=== PATIENT | male | born 1960 | race Caucasian/White ===

== ENCOUNTER → 2020-01-13 07:30 | Outpatient (CLI) | payer OTHER, SELFPAY ==
[2019-12-24 09:35] VITALS: BMI 27.6
--- NOTE | 2020-01-13 07:32 | ECHOD_ITS ---
Reason For Study: MV Repair Procedure This was a 2D Doppler, Color Flow transthoracic echocardiogram. Exam performed in department. Left Ventricle Normal LV size. Left ventricular systolic function is normal. The estimated ejection fraction is 60 %. No regional wall motion abnormalities noted. Right Ventricle Normal RV size. Normal systolic function. Atria Normal left atrium. Normal right atrium. Mitral Valve Normal mitral valve. Trivial mitral valve insufficiency. Status post mitral valve repair with annuloplasty ring. Tricuspid Valve Normal tricuspid valve. Mild tricuspid valve insufficiency. Pulmonary artery systolic pressure is 24 mmHg. Aortic Valve Normal aortic valve. Trisinus/trileaflet aortic valve. Pulmonic Valve Normal pulmonic valve. Great Vessels Normal aortic root. The pulmonary artery is normal size. Normal inferior vena cava. Pericardium/Pleural No pericardial effusion. MMode/2D Measurements & Calculations LVIDd: 4.4 cm IVSd: 1.0 cm Ao root diam: 3.6 cm LVIDs: 2.5 cm LVPWd: 0.98 cm RVDd: 3.5 cm FS: 44.1 % LAV(MOD-bp): 47.6 ml EDV(MOD-sp4): 105.2 ml EDV(MOD-sp2): 103.8 ml LAV(MOD-bp) Indexed: 23.3 ml/m2 ESV(MOD-sp4): 41.7 ml EF(MOD-sp2): 58.4 % LAV(MOD-sp2): 41.1 ml EF(MOD-sp4): 60.4 % LAV(MOD-sp4): 50.0 ml SV(MOD-sp4): 63.5 ml SV(MOD-sp2): 60.5 ml LA A4 area: 17.4 cm2 LA dimension(2D): 4.3 cm RA A4 area: 13.1 cm2 Doppler Measurements & Calculations MV E max tiburcio: 139.8 cm/sec Lat Peak E' Tiburcio: 6.9 cm/sec Med Peak E' Tiburcio: 8.1 cm/sec MV A max tiburcio: 93.9 cm/sec E/E' lat: 20.2 E/E' med: 17.3 MV E/A: 1.5 MV V2 max: 136.6 cm/sec MV P1/2t max tiburcio: 132.1 cm/sec Ao V2 max: 118.1 cm/sec MV max P.5 mmHg MV P1/2t: 92.4 msec Ao max P.6 mmHg MV V2 mean: 70.4 cm/sec MV dec slope: 419.0 cm/sec2 MV mean P.4 mmHg MV V2 VTI: 42.8 cm MVA(P1/2t): 2.4 cm2 LV V1 max: 100.5 cm/sec PA V2 max: 98.0 cm/sec TR max tiburcio: 233.2 cm/sec LV V1 max P.0 mmHg TR max P.8 mmHg Interpretation Summary Status post mitral valve repair with annuloplasty ring. Normal LV size. Left ventricular systolic function is normal. The estimated ejection fraction is 60 %. Trivial mitral valve insufficiency. Pulmonary artery systolic pressure is 24 mmHg. Ordering Physician: Leonides Garcia Referring Physician: Bart Armenta Performed By: Lizeth Wong RDCS
== END ==
PROVIDERS: PCP Family Medicine; Referring Provider Internal Medicine Cardiovascular Disease; Visit Provider Internal Medicine Cardiovascular Disease
DX: Z98.890 Other specified postprocedural states (principal)
CPT/HCPCS: 93306

== ENCOUNTER 2020-10-27 13:40 | Outpatient (RCR) | payer OTHER, SELFPAY ==
[2019-12-24 09:35] VITALS: BMI 27.6
[2020-11-17] MEDS: COVID-19 VACC, MRNA(PFIZER)/PF 30 MCG/0.3 ML SYRINGE IM (07:58)
== END 2021-01-19 23:59 ==
LOC: IMMUN 13:40
PROVIDERS: PCP Family Medicine; Referring Provider Family Medicine; Visit Provider Family Medicine
DX: Z23 Encounter for immunization (principal)
CPT/HCPCS: 0001A; 0002A; 91300

== ENCOUNTER 2021-09-15 10:18 | Outpatient (CLI) | payer OTHER, SELFPAY ==
[2021-09-15 12:31] LABS: Anion Gap 7 (5-15); BUN 24 mg/dL (7-18); BUN/Creat Ratio 22.9 RATIO (10-20); Calcium,Total 8.7 mg/dL (8.5-10.1); Chloride 111 mmol/L (98-107); Cholesterol 159 mg/dL (200); Creatinine, Serum 1.05 mg/dL (0.70-1.30); EST Glomerular Filtration Rate 76 mL/min (>60); Est Glom Filt Rate - Afr Amer 92 mL/min (>60); Glucose 113 mg/dL (74-106); High Density Lipoprotein 43 mg/dL; Potassium 4.4 mmol/L (3.5-5.1); Sodium Level 141 mmol/L (136-145); Triglycerides 55 mg/dL; Very Low Density Lipoprotein 11 mg/dL (5-40)
== END 2021-09-15 23:59 | disposition short-term general hospital (02) ==
LOC: MFPLAB 10:19
PROVIDERS: PCP Nurse Practitioner Family; Referring Provider Nurse Practitioner Family; Visit Provider Nurse Practitioner Family
DX: Z13.1 Encounter for screening for diabetes mellitus (principal); Z13.220 Encounter for screening for lipoid disorders
CPT/HCPCS: 36415; 80048; 80061

== ENCOUNTER 2021-09-29 15:53 | Outpatient (CLI) | payer OTHER, SELFPAY ==
[2021-09-29 19:07] LABS: Hemoglobin A1c 5.7 % (3.8-5.6)
== END 2021-09-29 23:59 | disposition home or self-care (01) ==
LOC: MFPLAB 15:56
PROVIDERS: PCP Nurse Practitioner Family; Referring Provider Nurse Practitioner Family; Visit Provider Nurse Practitioner Family
DX: R73.01 Impaired fasting glucose (principal)
CPT/HCPCS: 36415; 83036

== ENCOUNTER 2021-10-14 15:20 | Outpatient (CLI) | payer OTHER, SELFPAY ==
[2021-10-14 17:54] LABS: Absolute Lymphocyte Count 1.79 X10^3/uL (0.83-4.51); Absolute Neutrophil Count 5.8 X10^3/uL (2.0-7.7); Basophil# 0.03 X10^3/uL; Basophil% 0.4 % (0-1); Eosinophil# 0.13 X10^3/uL; Eosinophils% 1.5 % (0-5); Hemoglobin 17.6 g/dL (13.0-16.5); Lymphocyte # 1.79 X10^3/ul (0.83-4.51); Lymphocyte % 21.3 % (19-41); Mean Corp Hgb Conc 34.5 g/dL (32-36); Mean Corpuscular Hgb 29.8 pg (27.0-32.0); Mean Corpuscular Volume 86.4 fL (80-94); Mean Platelet Vol. 10.6 fl (6.2-12.0); Monocyte# 0.68 X10^3/uL; Monocyte% 8.1 % (0-10); NRBC Flagged by Analyzer 0 % (0-5); Neutrophil # 5.75 X10^3/uL (2.7-7.7); Neutrophil % 68.2 % (47-70); Platelet Count 241 K/mm3 (150-450); RBC Distribution Width CV 12.5 % (11.6-14.6); RBC Distribution Width SD 39.7 fl (35.1-43.9); White Blood Count 8.4 K/mm3 (4.4-11.0)
[2021-10-14 18:18] LABS: T4 Free Direct 1.04 ng/dL (0.76-1.46); Thyroid Stim Hormone (TSH) 0.91 uIU/mL (0.358-3.74)
[2021-10-15 10:21] LABS: Ferritin 223 ng/mL (26-388); Iron 113 ug/dL (65-175); Iron Binding Capacity,Total 293 ug/dL (250-450); PERCENT IRON SATURATION 38.6 % (15.0-55.0)
[2021-10-18 18:08] LABS: Thyroid Stim Immunoglob <0.10 IU/L (0.00-0.55); Transferrin 209 mg/dL (177-329)
[2021-10-18 19:01] LABS: Anti-Thyroglobulin AB < 1.0 IU/mL (0.0-0.9); Thyroglobulin, Serum Qt. 7.6 ng/mL (1.4-29.2); Thyroid Peroxidase AB 9 IU/mL (0-34)
== END 2021-10-14 23:59 | disposition home or self-care (01) ==
LOC: MFPLAB 15:21
PROVIDERS: PCP Family Medicine; Referring Provider Family Medicine; Visit Provider Family Medicine
DX: E01.0 Iodine-deficiency related diffuse (endemic) goiter (principal)
CPT/HCPCS: 36415; 82728; 83540; 83550; 84432; 84439; 84443; 84445; 84466; 85025; 86376; 86800

== ENCOUNTER 2021-10-20 14:37 | Outpatient (CLI) | payer OTHER, SELFPAY ==
--- NOTE | 2021-10-20 14:40 | US_ITS ---
History: Thyromegaly Thyroid ultrasound: Findings: The right thyroid lobe measures 5.9 x 2.1 x 2.6 cm. Left lobe measures 5.8 x 1.9 x 1.9 cm. 4 mm well-defined nodule within the left lobe is noted. This nodule is solid or almost completely solid, hyperechoic or isoechoic, [id number], smoothly marginated and contains no echogenic foci. This nodule is mildly suspicious but no FNA or follow-up is necessary given the small size of this nodule. Thyroid echogenicity is otherwise unremarkable. US/Thyroid IMPRESSION: No significant thyroid abnormality. at 1714 Reported and signed by: Elio Bassett MD Electronically Signed: Elio Bassett MD at 17:13 EST ,
== END 2021-10-20 23:59 | disposition home or self-care (01) ==
LOC: US 14:39
PROVIDERS: PCP Family Medicine; Referring Provider Family Medicine; Visit Provider Family Medicine
DX: E01.0 Iodine-deficiency related diffuse (endemic) goiter (principal)
CPT/HCPCS: 76536

== ENCOUNTER → 2023-09-14 | Outpatient (CLI) | payer OTHER, SELFPAY ==
[2023-09-14 16:30] LABS: Bacteria 0 SEEN /hpf (None Seen); Mucous, Urine 0 SEEN /hpf (<or=2+); Red Blood Cells-Urine 0 SEEN /hpf (0-5); Squamous Epithelial Cells - UA 0 SEEN /hpf (0-5); White Blood Cells 0 SEEN /hpf (0-5)
[2023-09-14 17:47] LABS: Absolute Lymphocyte Count 1.99 X10^3/uL (0.83-4.51); Absolute Neutrophil Count 10.3 X10^3/uL (2.0-7.7); Basophil# 0.02 X10^3/uL; Basophil% 0.1 % (0-1); Eosinophil# 0.09 X10^3/uL; Eosinophils% 0.7 % (0-5); Hematocrit 50.5 % (40-54); Hemoglobin 16.7 g/dL (13.0-16.5); Lymphocyte # 1.99 X10^3/ul (0.83-4.51); Lymphocyte % 14.4 % (19-41); Mean Corp Hgb Conc 33.1 g/dL (32-36); Mean Corpuscular Hgb 29.3 pg (27.0-32.0); Mean Corpuscular Volume 88.8 fL (80-94); Mean Platelet Vol. 10.5 fl (6.2-12.0); Monocyte# 1.32 X10^3/uL; Monocyte% 9.6 % (0-10); NRBC Flagged by Analyzer 0 % (0-5); Neutrophil # 10.34 X10^3/uL (2.7-7.7); Neutrophil % 74.8 % (47-70); Platelet Count 231 K/mm3 (150-450); RBC Distribution Width CV 12.7 % (11.6-14.6); RBC Distribution Width SD 41.3 fl (35.1-43.9); Red Blood Count 5.69 M/mm3 (4.6-6.2); White Blood Count 13.8 K/mm3 (4.4-11.0)
[2023-09-14 17:50] LABS: Color, Urine Yellow (Yellow); Glucose, Dipstick Normal (Normal); Ketone-Dipstick 5 mg/dl (Negative); Leukocyte Esterase-Dipstick Negative /ul (Negative); Nitrite-Dipstick Negative (Negative); Occult Blood-Urine Negative /ul (Negative); Protein-Dipstick 15 mg/dl (Negative); Urine Bilirubin Dipstick Negative (Negative); Urine Clarity Clear (Clear); Urine Urobilinogen Normal (Normal)
[2023-09-14 18:09] LABS: AST(SGOT) 14 U/L (15-37); Alanine Aminotransfer ALT/SGPT 23 U/L (16-61); Albumin, Serum 3.6 g/dL (3.2-5.0); Alkaline Phosphatase 77 U/L (45-117); Anion Gap 1 (5-15); BUN 19 mg/dL (7-18); Calcium,Total 9.4 mg/dL (8.5-10.1); Chloride 107 mmol/L (98-107); Cholesterol 176 mg/dL (200); Creatinine, Serum 1.12 mg/dL (0.70-1.30); EST Glomerular Filtration Rate 70 mL/min (>60); Est Glom Filt Rate - Afr Amer 85 mL/min (>60); Globulin 3.5 g/dL (2.2-4.2); Glucose 120 mg/dL (74-106); High Density Lipoprotein 46 mg/dL; Magnesium 2.4 mg/dL (1.6-2.6); PSA,Total - Annual Screen 0.42 ng/mL (0.00-4.00); Protein, Total 7.1 g/dL (6.4-8.2); Sodium Level 138 mmol/L (136-145); Triglycerides 160 mg/dL; Very Low Density Lipoprotein 32 mg/dL (5-40)
[2023-09-14 18:14] LABS: Hemoglobin A1c 5.7 % (3.8-5.6)
--- OUTSIDE RECORDS SUMMARY | 2023-09-14 19:32 | XMS RPT_ITS | CCD ---
Author Name Unknown Address [address] [place] [address] Organization [facility] Care Team Providers Care Steamfitter Supervisor Name Role Phone Caroline Bentley Unavailable Caroline Bentley Unavailable Medications Completed/Discontinued Medications Medication Drug Class(es) Dates Sig (Normalized) Sig (Original) amoxicillin 500 mg oral tablet (2 sources) Penicillin-class Antibacterial Start: 08-29-2016 take 4 tablets by mouth every hour AMOXICILLIN 500 MG TABS 4 tablets by mouth 1 hr prior to procedure AMOXICILLIN [id number] Leonides Garcia MD aspirin 81 mg oral strip (4 sources) Nonsteroidal Anti-inflammatory Drug Start: 04-16-2014 take 1 tablet by mouth once daily ASPIRIN 81 MG TABS One tablet by mouth daily ASPIRIN [id number] Leonides Garcia MD furosemide 20 mg oral tablet (4 sources) Loop Diuretic Start: 09-26-2014 End: 12-25-2014 take 1 tablet by mouth once daily FUROSEMIDE 20 MG TABS One tablet by mouth daily FUROSEMIDE [id number] Leonides Garcia MD Problems Active Problems Problem Classification Problem Date Documented Da te Episodic/Chronic Cardiac and circulatory congenital anomalies (2 sources) Left atrial abnormality; Translations: [Cardiomegaly] Onset: 04-09-2014 04-09-2014 Chronic Heart valve disorders (8 sources) Mitral valve prolapse; Translations: [Mitral valve disorder] Onset: 04-09-2014 Resolved: 12-24-2015 04-09-2014 Chronic Pulmonary heart disease (2 sources) Pulmonary hypertension; Translations: [Other secondary pulmonary hypertension] Onset: 04-09-2014 04-09-2014 Chronic Past or Other Problems Problem Classification Problem Date Documented Date Episodic/Chronic Conditions associated with dizziness or vertigo (4 sources) Dizziness and giddiness; Translations: [Dizziness and giddiness] Onset: 12-24-2015 Resolved: 12-22-2016 12-22-2016 Episodic Heart valve disorders (2 sources) Systolic murmur; Translations: [Endocarditis, valve unspecified] Onset: 04-09-2014 04-09-2014 Episodic Other circulatory disease (4 sources) History of repair of mitral valve; Translations: [Other specified postprocedural states] Onset: 12-25-2014 12-24-2015 Episodic Other nutritional; endocrine; and metabolic disorders (2 sources) Body mass index (BMI) 26.0-26.9, adult; Translations: [Body mass index (BMI) 26.0-26.9, adult] Onset: 04-16-2014 04-16-2014 Episodic Syncope (2 sources) Syncope and collapse; Translations: [Syncope and collapse] Onset: 09-18-2014 09-18-2014 Episodic Unclassified (2 sources) H/O: Disorder; Translations: [Personal history of other specified conditions] Onset: 09-18-2014 12-22-2016 Episodic Unclassified (2 sources) Open heart valvuloplasty of mitral valve without replacement; Translations: [Open heart valvuloplasty of mitral valve without replacement] Onset: 12-25-2014 12-25-2014 Results Test Name Value Interpretation Reference Range Facil ity Vital Signs Date Time Vital Sign Value Performing Clinician Sherrell olmos 12-22-2016 13:07-0400 BMI (Body Mass Index) 28.09 kg/m2 Caroline Tyson [facility] Work Phone: 12-22-2016 13:07-0400 BP Diastolic 64 mm[Hg] [facility] Work Phone: 12-22-2016 13:07-0400 BP Systolic 110 mm[Hg] Caroline Tyson [facility] Work Phone: 12-22-2016 13:07-0400 Height 177.8 cm Caroline Tyson [facility] Work Phone: 12-22-2016 13:07-0400 Pulse (Heart Rate) 68 /min Caroline Tyson [facility] Work Phone: 12-22-2016 13:07-0400 Respiratory Rate 20 /min Caroline [facility] Work Phone: 12-22-2016 13:07-0400 Weight 88.81 kg Caroline [facility] Work Phone: 12-24-2015 13:04-0400 BSA (Body Surface Area) 2.04 m2 Caroline [facility] Work Phone: 09-25-2014 09:48-0500 Pulse Oximetry 98 % Caroline [facility] Work Phone: Procedures Date Procedure Procedure Detail Performing Clinician Start: 12-24-2015 End: 01-01-2016 Carotid duplex Leonides Garcia MD Start: 12-24-2015 End: 12-24-2015 BRYCE Garcia MD Start: 12-24-2015 End: 12-24-2015 Follow Up Appt 1 year Leonides Garcia MD Start: 12-25-2014 End: 12-25-2014 BRYCE Garcia MD Start: 12-25-2014 End: 12-26-2014 Documentation of current medications Leonides Garcia MD Start: 09-25-2014 End: 09-25-2014 BRYCE Garcia MD Start: 09-25-2014 End: 09-25-2014 Electrocardiogram, complete Leonides Schilling i, MD Start: 09-25-2014 End: 09-25-2014 Follow Up Appt 3 months Mis Fishman Start: 09-18-2014 End: 09-24-2014 48 hour holter monitor Leonides Garcia MD Start: 08-21-2014 End: 08-21-2014 BRYCE Garcia MD Start: 08-21-2014 End: 08-21-2014 Follow Up Appt 2 months Mis Fishman Start: 05-16-2014 End: 05-16-2014 BRYCE Garcia MD Start: 05-16-2014 End: 05-16-2014 Follow Up Appt 3 months Mis Fishman Start: 04-25-2014 End: 05-14-2014 *BMP Leonides Garcia MD Start: 04-25-2014 End: 05-14-2014 CBC W Auto Differential panel - Blood Leonides Garcia MD Start: 04-25-2014 End: 05-03-2014 Chest x-ray Leonides Garcia MD Start: 04-25-2014 End: 05-14-2014 Coagulation factor induced.INR assay in platelet poor plasma Leonides Garcia MD Start: 04-25-2014 End: 05-03-2014 Left Heart Cath Leonides Garcia MD Start: 04-16-2014 End: 04-16-2014 BRYCE Garcia MD Start: 04-16-2014 End: 04-16-2014 Electrocardiogram, complete Leonides Schilling i, MD Start: 04-16-2014 End: 04-16-2014 Follow Up Appt 6 weeks Leonides Garcia MD Start: 04-16-2014 End: 04-16-2014 Stress Echocardiogram (treadmill) Leonides Garcia MD Plan of Treatment Date Care Activity Detail Author Start: 12-21-2017 End: 12-21-2017 Appointment Appointment [facility] Work Phone: Start: 12-22-2016 End: 12-22-2016 CAR REPAIRER APPRENTICE CAR REPAIRER APPRENTICE [facility] Work Phone: Start: 12-22-2016 End: 12-22-2016 Follow Up Appt 1 year Follow Up Appt 1 year [facility] Work Phone: Start: 12-24-2015 End: 12-24-2015 Carotid duplex Carotid duplex [facility] Work Phone: Start: 12-24-2015 End: 12-24-2015 CAR REPAIRER APPRENTICE CAR REPAIRER APPRENTICE [facility] Work Phone: Start: 12-24-2015 End: 12-24-2015 Follow Up Appt 1 year Follow Up Appt 1 year [facility] Work Phone: Start: 12-25-2014 End: 12-25-2014 CAR REPAIRER APPRENTICE CAR REPAIRER APPRENTICE [facility] Work Phone: Start: 12-25-2014 End: 12-25-2014 Follow Up Appt 1 year Follow Up Appt 1 year [facility] Work Phone: Start: 09-25-2014 End: 09-25-2014 Chest x-ray X-Ray, Chest, PA & Lateral [facility] Work Phone: Start: 09-25-2014 End: 09-25-2014 CAR REPAIRER APPRENTICE CAR REPAIRER APPRENTICE [facility] Work Phone: Start: 09-25-2014 End: 09-25-2014 Echocardiography Echocardiogram (complete) [facility] Work Phone: Start: 09-25-2014 End: 09-25-2014 Electrocardiogram, complete EKG (In office) [facility] Work Phone: Start: 09-25-2014 End: 09-25-2014 Follow Up Appt 3 months Follow Up Appt 3 months [facility] Work Phone: Start: 09-18-2014 End: 09-18-2014 48 hour holter monitor 48 hour holter monitor [facility] Work Phone: Start: 08-22-2014 End: 08-22-2014 Thoracic Surgery Referral Thoracic Surgery Referral Lawrence Ahuja, [address] [facility] [address], [place], [address] [facility] Work Phone: Start: 08-21-2014 End: 08-21-2014 CAR REPAIRER APPRENTICE CAR REPAIRER APPRENTICE [facility] Work Phone: Start: 08-21-2014 End: 08-21-2014 Follow Up Appt 2 months Follow Up Appt 2 months [facility] Work Phone: Start: 05-16-2014 End: 05-16-2014 CAR REPAIRER APPRENTICE CAR REPAIRER APPRENTICE [facility] Work Phone: Start: 05-16-2014 End: 05-16-2014 Follow Up Appt 3 months Follow Up Appt 3 months [facility] Work Phone: Start: 04-25-2014 End: 04-25-2014 *BMP *BMP [facility] Work Phone: Start: 04-25-2014 End: 04-25-2014 CBC W Auto Differential panel - Blood *CBC without Diff [facility] Work Phone: Start: 04-25-2014 End: 05-03-2014 Chest x-ray X-Ray, Chest, PA & Lateral [facility] Work Phone: Start: 04-25-2014 End: 04-25-2014 Coagulation factor induced.INR assay in platelet poor plasma *PT/INR [facility] Work Phone: Start: 04-25-2014 End: 04-25-2014 Left Heart Cath Left Heart Cath [facility] Work Phone: Start: 04-16-2014 End: 04-16-2014 CAR REPAIRER APPRENTICE CAR REPAIRER APPRENTICE [facility] Work Phone: Start: 04-16-2014 End: 04-16-2014 Electrocardiogram, complete EKG (In office) [facility] Work Phone: Start: 04-16-2014 End: 04-16-2014 Follow Up Appt 6 weeks Follow Up Appt 6 weeks [facility] Work Phone: Start: 04-16-2014 End: 04-16-2014 Stress Echocardiogram (treadmill) Stress Echocardiogram (treadmill) [facility] Work Phone: Additional Source Comments FOR RECORDS PERTAINING TO PATIENTS WHO ARE OR HAVE BEEN ENROLLED IN A CHEMICAL DEPENDENCY/SUBSTANCEABUSE PROGRAM, SOME INFORMATION MAY BE OMITTED. This clinical summary was aggregated from multiple sources. Caution should be exercised in using it in the provision of clinical care. This summary normalizes information from multiple sources, and as a consequence, information in this document may materially change the coding, format and clinical context of patient data. In addition, data may be omitted in some cases. CLINICAL DECISIONS SHOULD BE BASED ON THE PRIMARY CLINICAL RECORDS. [employer] [facility]. provides no warranty or guarantee of the accuracy or completeness of information in this document.
== END | disposition home or self-care (01) ==
LOC: MFPLAB 16:22
PROVIDERS: PCP Family Medicine; Visit Provider Family Medicine
DX: R73.02 Impaired glucose tolerance (oral) (principal); R03.0 Elevated blood-pressure reading, without diagnosis of hypertension; Z12.5 Encounter for screening for malignant neoplasm of prostate
CPT/HCPCS: 36415; 80053; 80061; 81001; 83036; 83735; 84153; 85025; G0103

== ENCOUNTER 2023-09-22 07:41 | Day surgery (SDC) | payer OTHER, SELFPAY ==
[2023-09-22] VITALS (7 sets, daily range): BP systolic 102–148; BP diastolic 56–89; PULSE 69–82; RESP 16; TEMP 37.1–37.3; O2SAT 94–96; BMI 26.5
--- OUTSIDE RECORDS SUMMARY | 2023-09-22 07:43 | XMS RPT_ITS | CCD ---
Author Name Unknown Address [address] [place] [address] Organization [facility] Care Team Providers Care Wave Soldering Machine Operator Name Role Phone Caroline Bentley Unavailable Caroline Bentley Unavailable Medications Completed/Discontinued Medications Medication Drug Class(es) Dates Sig (Normalized) Sig (Original) amoxicillin 500 mg oral tablet (2 sources) Penicillin-class Antibacterial Start: 08-29-2016 take 4 tablets by mouth every hour AMOXICILLIN 500 MG TABS 4 tablets by mouth 1 hr prior to procedure AMOXICILLIN [id number] Leonides Garcia MD aspirin 81 mg oral strip (4 sources) Nonsteroidal Anti-inflammatory Drug Start: 04-16-2014 take 1 tablet by mouth once daily ASPIRIN 81 MG TABS One tablet by mouth daily ASPIRIN [id number] Leonides Garcia MD furosemide 20 mg oral tablet (4 sources) Loop Diuretic Start: 09-26-2014 End: 12-25-2014 take 1 tablet by mouth once daily FUROSEMIDE 20 MG TABS One tablet by mouth daily FUROSEMIDE [id number] Leonides Garcia MD Problems Active Problems Problem [...] (Body Mass Index) 28.09 kg/m2 Caroline Tyson [facility] Work Phone: 12-22-2016 13:07-0400 BP Diastolic 64 mm[Hg] Caroline [facility] Work Phone: 12-22-2016 13:07-0400 BP Systolic 110 mm[Hg] Caroline Tyson [facility] Work Phone: 12-22-2016 13:07-0400 Height 177.8 cm Caroline Tyson [facility] Work Phone: 12-22-2016 13:07-0400 Pulse (Heart Rate) 68 /min Caroline Tyson [facility] Work Phone: 12-22-2016 13:07-0400 Respiratory Rate [...] Author Start: 12-21-2017 End: 12-21-2017 Appointment Appointment [facility] Work Phone: Start: 12-22-2016 End: 12-22-2016 SENIOR IT SECURITY ANALYST SENIOR IT SECURITY ANALYST [facility] Work Phone: Start: 12-22-2016 End: 12-22-2016 Follow Up Appt 1 year Follow Up Appt 1 year [facility] Work Phone: Start: 12-24-2015 End: 12-24-2015 Carotid duplex Carotid duplex [facility] Work Phone: Start: 12-24-2015 End: 12-24-2015 SENIOR IT SECURITY ANALYST SENIOR IT SECURITY ANALYST [facility] Work Phone: Start: 12-24-2015 End: 12-24-2015 Follow Up Appt 1 year Follow Up Appt 1 year [facility] Work Phone: Start: 12-25-2014 End: 12-25-2014 SENIOR IT SECURITY ANALYST SENIOR IT SECURITY ANALYST [facility] Work Phone: Start: 12-25-2014 End: 12-25-2014 Follow Up Appt 1 year Follow Up Appt 1 year [facility] Work Phone: Start: 09-25-2014 End: 09-25-2014 Chest x-ray X-Ray, Chest, PA & Lateral [facility] Work Phone: Start: 09-25-2014 End: 09-25-2014 SENIOR IT SECURITY ANALYST SENIOR IT SECURITY ANALYST [facility] Work Phone: Start: 09-25-2014 End: 09-25-2014 Echocardiography Echocardiogram (complete) [facility] Work Phone: Start: 09-25-2014 End: 09-25-2014 Electrocardiogram, complete EKG (In office) [facility] Work Phone: Start: 09-25-2014 End: 09-25-2014 Follow Up Appt 3 months Follow Up Appt 3 months [facility] Work Phone: Start: 09-18-2014 End: 09-18-2014 48 hour holter monitor 48 hour holter monitor [facility] Work Phone: Start: 08-22-2014 End: 08-22-2014 Thoracic Surgery Referral Thoracic Surgery Referral Lawrence Ahuja, [address] [facility] [address], [place], [address] [facility] Work Phone: Start: 08-21-2014 End: 08-21-2014 SENIOR IT SECURITY ANALYST SENIOR IT SECURITY ANALYST [facility] Work Phone: Start: 08-21-2014 End: 08-21-2014 Follow Up Appt 2 months Follow Up Appt 2 months [facility] Work Phone: Start: 05-16-2014 End: 05-16-2014 SENIOR IT SECURITY ANALYST SENIOR IT SECURITY ANALYST [facility] Work Phone: Start: 05-16-2014 End: 05-16-2014 Follow Up Appt 3 months Follow Up Appt 3 months [facility] Work Phone: Start: 04-25-2014 End: 04-25-2014 *BMP *BMP [facility] Work Phone: Start: 04-25-2014 End: 04-25-2014 CBC W Auto Differential panel - Blood *CBC without Diff [facility] Work Phone: Start: 04-25-2014 End: 05-03-2014 Chest x-ray X-Ray, Chest, PA & Lateral [facility] Work Phone: Start: 04-25-2014 End: 04-25-2014 Coagulation factor induced.INR assay in platelet poor plasma *PT/INR [facility] Work Phone: Start: 04-25-2014 End: 04-25-2014 Left Heart Cath Left Heart Cath [facility] Work Phone: Start: 04-16-2014 End: 04-16-2014 SENIOR IT SECURITY ANALYST SENIOR IT SECURITY ANALYST [facility] Work Phone: Start: 04-16-2014 End: 04-16-2014 Electrocardiogram, complete EKG (In office) [facility] Work Phone: Start: 04-16-2014 End: 04-16-2014 Follow Up Appt 6 weeks Follow Up Appt 6 weeks [facility] Work Phone: Start: 04-16-2014 End: 04-16-2014 Stress Echocardiogram (treadmill) Stress Echocardiogram (treadmill) [facility] Work Phone: Additional Source Comments [...] BE BASED ON THE PRIMARY CLINICAL RECORDS. [employer] [facility]. provides no warranty or guarantee of the accuracy or completeness of information in this document.
[2023-09-22] MEDS: Lactated Ringers 1,000 ML 15 ML IV (08:20)
--- NOTE | 2023-09-22 08:35 | PCM.HP.STD ---
[facility] - General General Date of Service: 09/22/23 Chief Complaint: Screening for intestinal cancer [facility] Narrative RAHUL GHOSH, is a 62 M who presents via open access today for screening colonoscopy. He has had a very remote 1 when he was a teenager. Only pertinent health history is August 2014 he had a mitral valve repair. He has done well since that time and has no limitations. He denies any bright red blood per rectum or melena. No abdominal pain no weight loss. [facility] Medical History (Updated 09/18/23 @ 14:02 by Karthikeyan Mendez) Cardiology follow-up encounter Elevated blood pressure reading History of echocardiogram Non-smoker Nonrheumatic mitral (valve) insufficiency Nonrheumatic mitral (valve) prolapse Syncope and collapse Wears glasses Home Medications NK 09/18/23 [History Last Taken Unknown] Allergy/AdvReac Type Severity Reaction Status Date / Time No Known Allergies Allergy Verified 09/22/23 08:08 Family History Father Cancer lung cancer Mother Diabetes Surgical History H/O mitral valve repair (08/28/14) History of left heart catheterization (04/30/14) History of tonsillectomy and adenoidectomy Hx of colonoscopy Hx of inguinal hernia repair Social History (Updated 09/15/23 @ 14:14 by Megha Serrano) household members: spouse current occupational status: retired 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, [employer] Smoking Status: Never smoker alcohol intake: never substance use type: does not use ROS Constitutional Constitutional: Reports systems reviewed and no addt'l complaints, except as documented Cardiovascular Cardiovascular: Denies chest pain Respiratory/Chest Respiratory/Chest: Denies shortness of breath at rest Gastrointestinal Gastrointestinal: Denies abdominal pain, change in bowel habits, hematochezia or melena Vital Signs Vital Signs Vital Signs: 09/22/23 08:09 09/22/23 08:09 Temperature 99.1 F Temperature Source Temporal Pulse Rate 82 Respiratory Rate 16 Respiratory Pattern Normal Blood Pressure 148/89 H Blood Pressure Mean 108 Blood Pressure Source Monitor Blood Pressure Position Semi-Fowlers Blood Pressure Location Left Arm Pulse Ox 96 Oxygen Delivery Method Room Air Weight Weight: 185 lb 3.013 oz Body Mass Index (BMI) 26.5 Physical Exam Const alert, oriented x3 and no apparent distress General Appearance: cooperative and comfortable Eyes General Eye: normal appearance of both eyes Neck General: normal visual inspection Chest inspection of chest normal Resp Effort and Inspection: able to speak in complete sentences and symmetric chest movement Auscultation: clear to auscultation bilaterally Cardio regular rate and regular rhythm GI soft to palpation, non-tender and non-distended Extremity no calf tenderness Neuro oriented x3 Psych thought process normal Assessment & Plan Assessment/Plan (1) Encounter for screening for malignant neoplasm of colon: PLAN: The patient presents for screening colonoscopy today with possible biopsy or polypectomy as indicated. He presents via open access. He has had an opportunity to ask and have questions answered. We will proceed as noted. Robles Rubio M.D., F.A.C.S.
--- NOTE | 2023-09-22 09:31 | OP.COLON_ITS ---
Patient Name: Sanjay Gunn Procedure Date: 09/22/2023 9:03 AM Date of : 1960 Age: 62 Procedure: Colonoscopy Indications: Screening for colorectal malignant neoplasm Providers: Robles Rubio MD Referring MD: Bart Cardona Medicines: See the Anesthesia note for documentation of the administered medications Patient Profile: Last Colonoscopy: more than 10 years ago. Complications: No immediate complications. Procedure: Pre-Anesthesia Assessment: - Prior to the procedure, a History and Physical was performed, and patient medications and allergies were reviewed. The patient's tolerance of previous anesthesia was also reviewed. The risks and benefits of the procedure and the sedation options and risks were discussed with the patient. All questions were answered, and informed consent was obtained. Prior Anticoagulants: The patient has taken no anticoagulant or antiplatelet agents. ASA Grade Assessment: II - A patient with mild systemic disease. After reviewing the risks and benefits, the patient was deemed in satisfactory condition to undergo the procedure. After I obtained informed consent, the scope was passed under direct vision. Throughout the procedure, the patient's blood pressure, pulse, and oxygen saturations were monitored continuously. The adult colonoscope was introduced through the anus and advanced to the cecum, identified by appendiceal orifice and ileocecal valve. The colonoscopy was performed without difficulty. The patient tolerated the procedure well. The quality of the bowel preparation was good. The ileocecal valve and the appendiceal orifice were photographed. Scope In: 9:12:54 AM Scope Withdrawal Time 0 hours 8 minutes 42 seconds Scope Out: 9:26:37 AM Total Procedure Duration Time 0 hours 13 minutes 43 seconds Findings: The digital rectal exam findings include non-thrombosed external hemorrhoids, non-thrombosed internal hemorrhoids and internal hemorrhoids (Grade I). Pertinent negatives include normal prostate (size, shape, and consistency). Multiple diverticula were found in the sigmoid colon and descending colon. The exam was otherwise without abnormality. Impression: - Non-thrombosed external hemorrhoids, non-thrombosed internal hemorrhoids and internal hemorrhoids (Grade I) found on digital rectal exam. - Diverticulosis in the sigmoid colon and in the descending colon. - The examination was otherwise normal. - No specimens collected. Recommendation: - Discharge patient to home. - Resume previous diet. - Continue present medications. - Repeat colonoscopy in 10 years for screening purposes. Procedure Code(s): --- Professional --- 97028, Colonoscopy, flexible; diagnostic, including collection of specimen(s) by brushing or washing, when performed (separate procedure) Diagnosis Code(s): --- Professional --- Z12.11, Encounter for screening for malignant neoplasm of colon K64.0, First degree hemorrhoids K64.4, Residual hemorrhoidal skin tags K57.30, Diverticulosis of large intestine without perforation or abscess without bleeding CPT copyright 2021 [employer]. All rights reserved. The codes documented in this report are preliminary and upon shellacker review may be revised to meet current compliance requirements. Robles Rubio MD 09/22/2023 9:31:05 AM This report has been signed electronically. Number of Addenda: 0 Note Initiated On: 09/22/2023 9:03 AM
--- NOTE | 2023-09-22 09:31 | OP.CCLET_ITS ---
09/22/2023 Bart Cardona [address] [place] [address] Re : Colonoscopy procedure for Sanjay Luisgins Dear Dr. Cardona This procedure was performed on Friday, September 22, 2023. My impressions and recommendations are as follows: Impressions : - Non-thrombosed external hemorrhoids, non-thrombosed internal hemorrhoids and internal hemorrhoids (Grade I) found on digital rectal exam. - Diverticulosis in the sigmoid colon and in the descending colon. - The examination was otherwise normal. - No specimens collected. Recommendations : - Discharge patient to home. - Resume previous diet. - Continue present medications. - Repeat colonoscopy in 10 years for screening purposes. My findings are described in the full procedure note, which is enclosed. If I can be of further assistance, please feel free to contact me at Doctor phone number(s): Work: . Sincerely, Robles Rubio MD 09/22/2023 9:31:05 AM This report has been signed electronically.
== END 2023-09-22 10:57 | disposition home or self-care (01) ==
LOC: EN 07:41 → AC 07:42
PROVIDERS: PCP Family Medicine; Referring Provider Family Medicine; Visit Provider Surgery
PROC: 0DJD8ZZ Inspection of Lower Intestinal Tract, Via Natural or Artificial Opening Endoscopic (ICD-10-PCS; CPT 45378; principal; 2023-09-22 08:55)
DX: Z12.11 Encounter for screening for malignant neoplasm of colon (principal); K64.0 First degree hemorrhoids; K57.30 Diverticulosis of large intestine without perforation or abscess without bleeding; K64.4 Residual hemorrhoidal skin tags
CPT/HCPCS: 45378; J7120; J2405

== ENCOUNTER → 2024-03-04 | Outpatient (CLI) | payer MEDICARE, OTHER, SELFPAY ==
--- NOTE | 2024-03-04 14:42 | ECHOD_ITS ---
Reason For Study: MV Repair Procedure This was a 2D Doppler, Color Flow transthoracic echocardiogram. Exam performed in department. Left Ventricle Normal LV size. Left ventricular systolic function is normal. The left ventricular ejection fraction is 60 %. No regional wall motion abnormalities noted. Right Ventricle Normal RV size. Normal systolic function. Atria Normal left atrium. Normal right atrium. Mitral Valve Status post mitral valve repair with annuloplasty ring. Tricuspid Valve Normal tricuspid valve. Mild tricuspid valve insufficiency. Pulmonary artery systolic pressure is 35 mmHg. Aortic Valve Trisinus/trileaflet aortic valve. Pulmonic Valve Normal pulmonic valve. Great Vessels Normal aortic root. The pulmonary artery is normal size. Normal inferior vena cava. Pericardium/Pleural No pericardial effusion. MMode/2D Measurements & Calculations LVIDd: 5.0 cm IVSd: 1.3 cm Ao root diam: 3.7 cm LVIDs: 3.1 cm LVPWd: 0.92 cm LA dimension: 4.7 cm RVDd: 3.5 cm FS: 39.2 % LAV(MOD-bp): 71.9 ml LVAd ap4: 32.7 cm2 SV(MOD-sp4): 57.6 ml LAV(MOD-bp) Indexed: 35.2 ml/m2 LVLd ap4: 8.4 cm LAV(MOD-sp2): 71.2 ml EDV(MOD-sp4): 104.6 ml LAV(MOD-sp4): 74.0 ml EDV(sp4-el): 108.3 ml LVAs ap4: 19.0 cm2 LVLs ap4: 6.7 cm ESV(MOD-sp4): 47.0 ml ESV(sp4-el): 45.2 ml EF(MOD-sp4): 55.1 % EF(sp4-el): 58.2 % SV(sp4-el): 63.0 ml LA A4 area: 21.8 cm2 RA A4 area: 17.6 cm2 TAPSE: 2.3 cm Time Measurements MV dec time: 0.23 sec Doppler Measurements & Calculations MV E max tiburcio: 131.3 cm/sec Lat Peak E' Tiburcio: 8.8 cm/sec Med Peak E' Tiburcio: 9.2 cm/sec MV A max tiburcio: 92.5 cm/sec E/E' lat: 15.0 E/E' med: 14.3 MV E/A: 1.4 MV V2 max: 141.9 cm/sec MV P1/2t max tiburcio: 142.3 cm/sec Ao V2 max: 137.8 cm/sec MV max P.1 mmHg MV P1/2t: 73.7 msec Ao max P.6 mmHg MV V2 mean: 63.3 cm/sec MV dec slope: 565.3 cm/sec2 Ao V2 mean: 90.5 cm/sec MV mean P.1 mmHg Ao mean P.8 mmHg MV V2 VTI: 43.1 cm MVA(P1/2t): 3.0 cm2 Ao V2 VTI: 28.9 cm AV (velocity ratio): 0.87 LV V1 max: 111.5 cm/sec PA V2 max: 106.5 cm/sec TR max tiburcio: 281.0 cm/sec LV V1 max P.0 mmHg PA max PG (full): 1.8 mmHg TR max P.6 mmHg LV V1 mean P.2 mmHg PA V2 mean: 70.7 cm/sec LV V1 mean: 84.6 cm/sec PA mean PG (full): 0.85 mmHg LV V1 VTI: 25.1 cm ECHO/Echo Complete Interpretation Summary Normal LV size. Left ventricular systolic function is normal. The left ventricular ejection fraction is 60 %. Status post mitral valve repair with annuloplasty ring. Pulmonary artery systolic pressure is 35 mmHg. Ordering Physician: Leonides Garcia Referring Physician: Leonides Garcia Performed By: Hammad Goff RCS
== END | disposition home or self-care (01) ==
LOC: CVS 14:40
PROVIDERS: PCP Family Medicine; Referring Provider Internal Medicine Cardiovascular Disease; Visit Provider Internal Medicine Cardiovascular Disease
DX: Z98.890 Other specified postprocedural states (principal)
CPT/HCPCS: 93306

== ENCOUNTER → 2024-04-02 | Outpatient (CLI) | payer MEDICARE, OTHER, SELFPAY ==
[2024-04-02 16:40] LABS: Bacteria 0 SEEN /hpf (None Seen); Mucous, Urine 0 SEEN /hpf (<or=2+); Red Blood Cells-Urine 0 SEEN /hpf (0-5); Squamous Epithelial Cells - UA 0 SEEN /hpf (0-5); White Blood Cells 0 SEEN /hpf (0-5)
[2024-04-02 17:30] LABS: Color, Urine Yellow (Yellow); Glucose, Dipstick Normal (Normal); Ketone-Dipstick Negative (Negative); Leukocyte Esterase-Dipstick Negative /ul (Negative); Nitrite-Dipstick Negative (Negative); Occult Blood-Urine Negative /ul (Negative); Protein-Dipstick Negative (Negative); Specific Gravity, Urine 1.025 (1.002-1.030); Urine Bilirubin Dipstick Negative (Negative); Urine Clarity Clear (Clear); Urine Urobilinogen 1 mg/dl (Normal)
[2024-04-02 17:33] LABS: Absolute Lymphocyte Count 2.23 X10^3/uL (0.83-4.51); Absolute Neutrophil Count 5.5 X10^3/uL (2.0-7.7); Basophil# 0.02 X10^3/uL; Basophil% 0.2 % (0-1); Eosinophil# 0.16 X10^3/uL; Eosinophils% 1.8 % (0-5); Hemoglobin 17.4 g/dL (13.0-16.5); Lymphocyte # 2.23 X10^3/ul (0.83-4.51); Lymphocyte % 25.1 % (19-41); Mean Corp Hgb Conc 34.1 g/dL (32-36); Mean Corpuscular Hgb 29.6 pg (27.0-32.0); Mean Corpuscular Volume 86.9 fL (80-94); Mean Platelet Vol. 10.1 fl (6.2-12.0); Monocyte# 0.92 X10^3/uL; Monocyte% 10.4 % (0-10); NRBC Flagged by Analyzer 0 % (0-5); Platelet Count 241 K/mm3 (150-450); RBC Distribution Width CV 12.3 % (11.6-14.6); RBC Distribution Width SD 38.9 fl (35.1-43.9); Red Blood Count 5.87 M/mm3 (4.6-6.2); White Blood Count 8.9 K/mm3 (4.4-11.0)
[2024-04-02 18:16] LABS: ALB/GLOB Ratio 1.1 RATIO (0.9-2.4); AST(SGOT) 18 U/L (15-37); Alanine Aminotransfer ALT/SGPT 20 U/L (16-61); Albumin, Serum 3.7 g/dL (3.2-5.0); Alkaline Phosphatase 83 U/L (45-117); Anion Gap 5 (5-15); BUN 18 mg/dL (7-18); BUN/Creat Ratio 17.1 RATIO (10-20); Calcium,Total 9.5 mg/dL (8.5-10.1); Chloride 110 mmol/L (98-107); Cholesterol 179 mg/dL (200); Creatinine, Serum 1.05 mg/dL (0.70-1.30); EST Glomerular Filtration Rate 75 mL/min (>60); Est Glom Filt Rate - Afr Amer 91 mL/min (>60); Globulin 3.3 g/dL (2.2-4.2); Glucose 105 mg/dL (74-106); High Density Lipoprotein 46 mg/dL; Magnesium 2.3 mg/dL (1.6-2.6); Sodium Level 139 mmol/L (136-145); Triglycerides 141 mg/dL; Very Low Density Lipoprotein 28 mg/dL (5-40)
[2024-04-02 19:54] LABS: Hemoglobin A1c 5.6 % (3.8-5.6)
== END | disposition home or self-care (01) ==
LOC: MFPLAB 16:38
PROVIDERS: PCP Family Medicine; Visit Provider Family Medicine
DX: I10 Essential (primary) hypertension (principal); R73.02 Impaired glucose tolerance (oral)
CPT/HCPCS: 36415; 80053; 80061; 81001; 83036; 83735; 85025

== ENCOUNTER → 2024-04-10 | Outpatient (CLI) | payer MEDICARE, OTHER, SELFPAY ==
--- NOTE | 2024-04-10 14:15 | US_ITS ---
STUDY: THYROID ULTRASOUND REASON FOR EXAM: Male, 63 years old. nodule TECHNIQUE: Ultrasound evaluation of the thyroid was performed with real-time and static st-scale imaging. COMPARISON: 10/20/2021 FINDINGS: RIGHT LOBE: The right lobe of the thyroid gland measures 5.8 x 2.0 x 1.5 cm. There is a homogeneous echotexture. There are no demonstrated solid, cystic or complex lesions. LEFT LOBE: The left lobe of the thyroid gland measures 5.6 x 2.0 x 2.1 cm. There is a homogeneous echotexture. No change in a 4 mm adenoma in the anterior left lobe. ISTHMUS: The isthmus measures 3 mm thick. . The regional lymph nodes are normal. US/Thyroid IMPRESSION: No change in tiny adenoma left lobe. Electronically Signed: Renan White MD at 13:26 EDT ,
== END | disposition home or self-care (01) ==
LOC: US 14:14
PROVIDERS: PCP Family Medicine; Referring Provider Family Medicine; Visit Provider Family Medicine
DX: E04.1 Nontoxic single thyroid nodule (principal)
CPT/HCPCS: 76536

== ENCOUNTER → 2024-09-18 | Outpatient (CLI) | payer MEDICARE, OTHER, SELFPAY ==
[2024-09-18 18:33] LABS: PSA,Total - Annual Screen 0.53 ng/mL (0.00-4.00)
== END | disposition home or self-care (01) ==
LOC: MTLAB 15:05
PROVIDERS: PCP Family Medicine; Referring Provider Family Medicine; Visit Provider Family Medicine
DX: Z12.5 Encounter for screening for malignant neoplasm of prostate (principal)
CPT/HCPCS: 36415; 84153; G0103

== ENCOUNTER → 2024-10-15 | Outpatient (CLI) | payer MEDICARE, OTHER, SELFPAY ==
--- NOTE | 2024-10-15 12:47 | ECHOD_ITS ---
Reason For Study Reason For Study: RBBB Procedure This was a 2D Doppler, Color Flow transthoracic echocardiogram. Exam performed in department. Left Ventricle Normal LV size. Mild concentric left ventricular hypertrophy. The left ventricular ejection fraction is 65 %. Stage 1 diastolic dysfunction. Right Ventricle Normal right ventricle. Atria The left atrium is mildly enlarged. Normal right atrium. Mitral Valve Mitral annuloplasty ring noted. Trivial mitral valve regurgitation. Tricuspid Valve Trivial tricuspid valve insufficiency. Right ventricular systolic pressure estimated to be 43 mmHg. Aortic Valve Trisinus/trileaflet aortic valve. Pulmonic Valve The pulmonic valve is not well visualized. Great Vessels Normal sized aortic root. Pericardium/Pleural No pericardial effusion. MMode/2D Measurements & Calculations LVIDd: 4.7 cm IVSd: 1.3 cm asc Aorta Diam: 3.6 cm LVIDs: 2.8 cm LVPWd: 1.2 cm RVDd: 4.2 cm FS: 40.6 % LAV(MOD-bp): 45.0 ml LVAd ap4: 26.5 cm2 SV(MOD-sp4): 52.3 ml LAV(MOD-bp) Indexed: 22.0 ml/m2 LVLd ap4: 7.9 cm SI(MOD-sp4): 25.6 ml/m2 LAV(MOD-sp2): 37.5 ml EDV(MOD-sp4): 74.3 ml LAV(MOD-sp4): 52.4 ml EDV(sp4-el): 75.2 ml LVAs ap4: 12.8 cm2 LVLs ap4: 6.2 cm ESV(MOD-sp4): 22.1 ml ESV(sp4-el): 22.3 ml EF(MOD-sp4): 70.3 % EF(sp4-el): 70.3 % SV(sp4-el): 52.9 ml LA A4 area: 18.1 cm2 LA dimension(2D): 4.6 cm RA A4 area: 12.5 cm2 TAPSE: 2.5 cm Time Measurements MV dec time: 0.29 sec Doppler Measurements & Calculations MV E max tiburcio: 107.2 cm/sec Lat Peak E' Tiburcio: 8.9 cm/sec Med Peak E' Tiburcio: 7.2 cm/sec MV A max tiburcio: 122.2 cm/sec E/E' lat: 12.1 E/E' med: 15.0 MV E/A: 0.88 MV V2 max: 127.6 cm/sec Ao V2 max: 174.5 cm/sec MV max P.5 mmHg MV dec slope: 364.6 cm/sec2 Ao max P.2 mmHg MV V2 mean: 80.6 cm/sec Ao V2 mean: 122.8 cm/sec MV mean P.9 mmHg Ao mean P.5 mmHg MV V2 VTI: 40.0 cm Ao V2 VTI: 29.4 cm LV V1 max: 128.4 cm/sec PA V2 max: 105.0 cm/sec PI end-d tiburcio: 136.0 cm/sec LV V1 max P.6 mmHg TR max tiburcio: 309.0 cm/sec TR max P.2 mmHg ECHO/Echo Complete Interpretation Summary Mild concentric left ventricular hypertrophy. The left ventricular ejection fraction is 65 %. Stage 1 diastolic dysfunction. The left atrium is mildly enlarged. Mitral annuloplasty ring noted. Trivial mitral valve regurgitation. Right ventricular systolic pressure estimated to be 43 mmHg. Ordering Physician: Bart Cardona Referring Physician: Bart Cardona Performed By: Lina Ash RDCS, RVT
== END | disposition home or self-care (01) ==
LOC: CVS 12:43
PROVIDERS: PCP Family Medicine; Referring Provider Family Medicine; Visit Provider Family Medicine
DX: I45.10 Unspecified right bundle-branch block (principal); I34.0 Nonrheumatic mitral (valve) insufficiency
CPT/HCPCS: 93306

== ENCOUNTER → 2025-04-01 | Outpatient (CLI) | payer MEDICARE, OTHER, SELFPAY ==
[2025-04-01 15:14] LABS: Mucous, Urine 0 SEEN /hpf (<or=2+); Squamous Epithelial Cells - UA 0 SEEN /hpf (0-5)
[2025-04-01 18:18] LABS: Hematocrit 49.3 % (40-54); Hemoglobin 17.6 g/dL (13.0-16.5); Immature Granulocytes Count 0.040 X10^3/uL (0.0-0.0); Mean Corp Hgb Conc 35.7 g/dL (32-36); Mean Corpuscular Volume 87.7 fL (80-94); Mean Platelet Vol. 10.6 fl (6.2-12.0); NRBC Flagged by Analyzer 0 % (0-5); Platelet Count 236 K/mm3 (150-450); RBC Distribution Width CV 12.3 % (11.6-14.6); RBC Distribution Width SD 39.7 fl (35.1-43.9); Red Blood Count 5.62 M/mm3 (4.6-6.2); White Blood Count 8.7 K/mm3 (4.4-11.0)
[2025-04-01 18:49] LABS: Color, Urine Yellow (Yellow); Glucose, Dipstick Normal (Normal); Ketone-Dipstick Negative (Negative); Leukocyte Esterase-Dipstick Negative /ul (Negative); Nitrite-Dipstick Negative (Negative); Occult Blood-Urine Negative /ul (Negative); Protein-Dipstick 15 mg/dl (Negative); Specific Gravity, Urine 1.025 (1.002-1.030); Urine Bilirubin Dipstick Negative (Negative)
[2025-04-01 18:59] LABS: Cholesterol 176 mg/dL (<=200); Low Density Lipoprotein Calc. 98 mg/dL; Magnesium 2.2 mg/dL (1.5-2.2); Triglycerides 176 mg/dL; Very Low Density Lipoprotein 35 mg/dL (5-40); cholesterol:hdl ratio screen 4.10
[2025-04-01 19:04] LABS: AST(SGOT) 23 U/L (<=37); Alanine Aminotransfer ALT/SGPT 17 U/L (<=46); Albumin, Serum 4.0 g/dL (3.4-4.8); Alkaline Phosphatase 72 U/L (40-129); Anion Gap 13 (5-15); BUN 22 mg/dL (4-19); BUN/Creat Ratio 18.2 RATIO (10-20); Calcium,Total 9.6 mg/dL (7.6-11.0); Carbon Dioxide 22.5 mmol/L (21.0-32.0); Chloride 104 mmol/L (98-108); Globulin 2.8 g/dL (2.2-4.2); Glucose 101 mg/dL (70-99); Potassium 3.9 mmol/L (3.3-5.1)
[2025-04-01 19:35] LABS: Red Blood Cells-Urine 0-5 SEEN /hpf (0-5)
--- OUTSIDE RECORDS SUMMARY | 2025-04-01 22:24 | XMS RPT_ITS | CCD ---
Author Organization [facility] Care Team Providers Care Nurse Assessor Name Role Phone Caroline Bentley Unavailable Caroline Bentley Unavailable Dr. Bart Cardona Primary Care Provider Megha Serrano Attending Provider Unavailable Dr. Bart Cardona Referring Provider Dr. Robles Rubio Attending Provider [phone] Dr. Robles Rubio Other Provider Radha, [place] Attending Unavailable Radha, Leonides Referring Unavailable Bart Cardona Primary Care Unavailable Bart Cardona Attending Unavailable Bart Cardona Primary Care Unavailable Bart Cardona Primary Care Unavailable Ricki Soria Attending Unavailable Radha, Leonides Attending Unavailable Bart Cardona Primary Care Unavailable Rosy Allison NP Attending Unavailable Bart Cardona Primary Care Unavailable Radha, [place] Attending Unavailable Bart Cardona Referring Unavailable Bart Cardona Primary Care Unavailable Bart Cardona Attending Unavailable Bart Cardona Referring Unavailable Bart Cardona Primary Care Unavailable Bart Cardona Referring Unavailable Bart Cardona Primary Care Unavailable Bart Cardona Attending Unavailable Bart Cardona Referring Unavailable Bart Cardona Primary Care Unavailable Bart Cardona Attending Unavailable Dr. Bart Cardona MD Primary Care Provider Dr. Bart Cardona MD Attending Provider Dr. Bart Cardona MD Referring Provider Dr. Ricki Soria MD Attending Provider Medications Current Medications Medication Drug Class(es) Dates Sig (Normalized) Sig (Original) [place] (Nk) (1 source) Start: 09-18-2023 [place] (Nk) Bruce ctive September 18, 2023 12:00am Completed/Discontinued Medications Medication Drug Class(es) Dates Sig (Normalized) Sig (Original) amoxicillin 500 mg oral capsule (12 sources) Penicillin-class Antibacterial Start: 03-21-2022 End: 09-18-2023 take 4 capsules by mouth every hour Amoxicillin 500 mg capsule Discontinued 500 mg PO .COMPLEX 4 September 15, 2023 4:25pm September 18, 2023 2:32pm 500 mg orally 4 capsules 1 hour prior to dental appointment; Start: 12-20-2017 End: 12-30-2021 take 4 tablets by mouth every hour Amoxicillin 500 mg tablet Discontinued 2000 mg PO .COMPLEX December 21, 2017 1:37pm December 30, 2021 2:16pm 2,000 mg PO one hour prior to dental procedure Start: 12-20-2017 End: 12-30-2021 take 2000 mg by mouth every hour Amoxicillin Discontinued 2000 MG PO .COMPLEX December 21, 2017 12:37pm December 30, 2021 1:16pm 2,000 mg PO one hour prior to dental procedure Start: 08-29-2016 take 4 tablets by mo [facility] every hour AMOXICILLIN 500 MG TABS 4 tablets by mouth 1 hr prior to procedure AMOXICILLIN [id number] Leonides Garcia MD aspirin 81 mg chewable tablet (6 sources) Nonsteroidal Anti-inflammatory Drug Start: 04-29-2014 End: 12-20-2019 take 1 tablet by mouth once daily Aspirin 81 MG tablet,chewable Discontinued 81 mg PO DAILY@08April 29, 2014 12:00am December 20, 2019 7:52pm Start: 04-16-2014 [facility] ASPIRIN 81 MG TABS One tablet by mouth daily ASPIRIN [id number] Leonides Garcia MD furosemide 20 mg oral tablet (4 sources) Loop Diuretic Start: 09-26-2014 End: 12-25-2014 take 1 tablet by mouth once daily FUROSEMIDE 20 MG TABS One tablet by mouth daily FUROSEMIDE [id number] Leonides Garcia MD hydroCHLOROthiazide 12.5 mg oral tablet (1 source) Thiazide Diuretic Start: 11-30-2023 End: 02-01-2024 take 1 tablet by mouth once daily Hydrochlorothiazide 12.5 mg tablet Discontinued 12.5 mg PO DAILY November 30, 2023 12:00am February 01, 2024 11:17am Problems Active Problems Problem Classification Problem Date Documented Da te Episodic/Chronic Cardiac and circulatory congenital anomalies (2 sources) Left atrial abnormality; Translations: [Cardiomegaly] Onset: 04-09-2014 04-09-2014 Chronic Conduction disorders (1 source) Unspecified right bundle-branch block; Translations: [Unspecified right bundle-branch block] Onset: 10-25-2024 Chronic Essential hypertension (1 source) Essential (primary) hypertension; Translations: [Essential (primary) hypertension] Onset: 04-18-2024 Chronic Heart valve disorders (12 sources) Mitral valve prolapse; Translations: [Mitral valve disorder] Onset: 04-09-2014 Resolved: 12-24-2015 04-09-2014 Chronic Other and ill-defined heart disease (2 sources) Left atrial enlargement; Translations: [Cardiomegaly] 12-21-2020 Chronic Other screening for suspected conditions (not mental disorders or infectious disease) (4 sources) Patient encounter status; Translations: [Encounter for screening for malignant neoplasm of colon] Onset: 10-04-2024 09-15-2023 Episodic Pulmonary heart disease (2 sources) Pulmonary hypertension; Translations: [Other secondary pulmonary hypertension] Onset: 04-09-2014 04-09-2014 Chronic Thyroid disorders (1 source) Nontoxic single thyroid nodule; Translations: [Nontoxic single thyroid nodule] Onset: 04-18-2024 Chronic Past or Other Problems Problem Classification Problem Date Documented Date Episodic/Chronic Conditions associated with dizziness or vertigo (4 sources) Dizziness and giddiness; Translations: [Dizziness and giddiness] Onset: 12-24-2015 Resolved: 12-22-2016 12-22-2016 Episodic Heart valve disorders (2 sources) Systolic murmur; Translations: [Endocarditis, valve unspecified] Onset: 04-09-2014 04-09-2014 Episodic Other circulatory disease (6 sources) History of repair of mitral valve; Translations: [Other specified postprocedural states] Onset: 08-28-2014 12-24-2015 Episodic Comment on above: # 32 annuloplasty ba nd 08/28/2014 Other nutritional; endocrine; and metabolic disorders (2 sources) Body mass index (BMI) 26.0-26.9, adult; Translations: [Body mass index (BMI) 26.0-26.9, adult] Onset: 04-16-2014 04-16-2014 Episodic Residual codes; unclassified (1 source) Other specified postprocedural states; Translations: [Other specified postprocedural states] Onset: 03-20-2024 Episodic Syncope (2 sources) Syncope and collapse; Translations: [Syncope and collapse] Onset: 09-18-2014 09-18-2014 Episodic Unclassified (2 sources) H/O: Disorder; Translations: [Personal history of other specified conditions] Onset: 09-18-2014 12-22-2016 Episodic Unclassified (2 sources) 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 Bart Cardona MD Status: [facility] Ordering Dr: Bart Cardona MD Date: 10/15/24 Location: [facility] Sex: M C Admitted: Reason For Study Reason For Study: RBBB Procedure This was a 2D Doppler, Color Flow transthoracic echocardiogram. Exam performed in department. Left Ventricle Normal LV size. Mild concentric left ventricular hypertrophy. The left ventricular ejection fraction is 65 %. Stage 1 diastolic dysfunction. Right Ventricle Normal right ventricle. Atria The left atrium is mildly enlarged. Normal right atrium. Mitral Valve Mitral annuloplasty ring noted. Trivial mitral valve regurgitation. Tricuspid Valve Trivial tricuspid valve insufficiency. Right ventricular systolic pressure estimated to be 43 mmHg. Aortic Valve Trisinus/trileaflet aortic valve. Pulmonic Valve The pulmonic valve is not well visualized. Great Vessels Normal sized aortic root. Pericardium/Pleural No pericardial effusion. MMode/2D Measurements Calculations LVIDd: 4.7 cm IVSd: 1.3 cm asc Aorta Diam: 3.6 cm LVIDs: 2.8 cm LVPWd: 1.2 cm RVDd: 4.2 cm FS: 40.6 % __ LAV(MOD-bp): 45.0 ml LVAd ap4: 26.5 cm2 SV(MOD-sp4): 52.3 ml LAV(MOD-bp) Indexed: 22.0 ml/m2 LVLd ap4: 7.9 cm SI(MOD-sp4): 25.6 ml/m2 LAV(MOD-sp2): 37.5 ml EDV(MOD-sp4): 74.3 ml LAV(MOD-sp4): 52.4 ml EDV(sp4-el): 75.2 ml LVAs ap4: 12.8 cm2 LVLs ap4: 6.2 cm ESV(MOD-sp4): 22.1 ml ESV(sp4-el): 22.3 ml EF(MOD-sp4): 70.3 % EF(sp4-el): 70.3 % __ SV(sp4-el): 52.9 ml LA A4 area: 18.1 cm2 LA dimension(2D): 4.6 cm __ RA A4 area: 12.5 cm2 TAPSE: 2.5 cm Time Measurements MV dec time: 0.29 sec Doppler Measurements Calculations MV E max tiburcio: 107.2 cm/sec Lat Peak E' Tiburcio: 8.9 cm/sec Med Peak E' Tiburcio: 7.2 cm/sec MV A max tiburcio: 122.2 cm/sec E/E' lat: 12.1 E/E' med: 15.0 MV E/A: 0.88 __ MV V2 max: 127.6 cm/sec Ao V2 max: 174.5 cm/sec MV max P.5 mmHg MV dec slope: 364.6 cm/sec2 Ao max P.2 mmHg MV V2 mean: 80.6 cm/sec Ao V2 mean: 122.8 cm/sec MV mean P.9 mmHg Ao mean P.5 mmHg MV V2 VTI: 40.0 cm Ao V2 VTI: 29.4 cm __ LV V1 max: 128.4 cm/sec PA V2 max: 105.0 cm/sec PI end-d tiburcio: 136.0 cm/sec LV V1 max P.6 mmHg __ TR max tiburcio: 309.0 cm/sec TR max P.2 mmHg ECHO/Echo Complete Interpretation Summary Mild concentric left ventricular hypertrophy. The left ventricular ejection fraction is 65 %. Stage 1 diastolic dysfunction. The left atrium is mildly enlarged. Mitral annuloplasty ring noted. Trivial mitral valve regurgitation. Right ventricular systolic pressure estimated to be 43 mmHg. __ Ordering Physician: Bart Cardona Referring Physician: Bart Cardona Performed By: Lina Ash, SWATHI, RVT 10/15/24 1355 Date Ricki Soria MD CC: Dr. Bart Cardona MD Date Dictated: 10/15/24 1250 Date Transcribed: 10/15/24 135 Trans Router: Signed Normal [facility] Echocardiogram study reportO rdered By: Ricki Soria on 10-15-2024 Study report [facility] [address] [place] [address] Echo Complete 10/15/24 1250 MR#: [id number] Acct: [id number] Name: RAHUL GHOSH #:[id number] : 1960 63 From: Ricki Soria MD Attending Dr: Dr. Bart Cardona MD Status: REG CLI Ordering Dr: Bart Cardona MD Date: 10/15/24 Location: [facility] Sex: M C Admitted: Reason For Study Reason For Study: RBBB Procedure This was a 2D Doppler, Color Flow transthoracic echocardiogram. Exam performed in department. Left Ventricle Normal LV size. Mild concentric left ventricular hypertrophy. The left ventricular ejection fraction is 65 %. Stage 1 diastolic dysfunction. Right Ventricle Normal right ventricle. Atria The left atrium is mildly enlarged. Normal right atrium. Mitral Valve Mitral annuloplasty ring noted. Trivial mitral valve regurgitation. Tricuspid Valve Trivial tricuspid valve insufficiency. Right ventricular systolic pressure estimated to be 43 mmHg. Aortic Valve Trisinus/trileaflet aortic valve. Pulmonic Valve The pulmonic valve is not well visualized. Great Vessels Normal sized aortic root. Pericardium/Pleural No pericardial effusion. MMode/2D Measurements & Calculations LVIDd: 4.7 cm IVSd: 1.3 cm asc Aorta Diam: 3.6 cm LVIDs: 2.8 cm LVPWd: 1.2 cm RVDd: 4.2 cm FS: 40.6 % LAV(MOD-bp): 45.0 ml LVAd ap4: 26.5 cm2 SV(MOD-sp4): 52.3 ml LAV(MOD-bp) Indexed: 22.0 ml/m2 LVLd ap4: 7.9 cm SI(MOD-sp4): 25.6 ml/m2 LAV(MOD-sp2): 37.5 ml EDV(MOD-sp4): 74.3 ml LAV(MOD-sp4): 52.4 ml EDV(sp4-el): 75.2 ml LVAs ap4: 12.8 cm2 LVLs ap4: 6.2 cm ESV(MOD-sp4): 22.1 ml ESV(sp4-el): 22.3 ml EF(MOD-sp4): 70.3 % EF(sp4-el): 70.3 % ____ SV(sp4-el): 52.9 ml LA A4 area: 18.1 cm2 LA dimension(2D): 4.6 cm ____ RA A4 area: 12.5 cm2 TAPSE: 2.5 cm Time Measurements MV dec time: 0.29 sec Doppler Measurements & Calculations MV E max tiburcio: 107.2 cm/sec Lat Peak E' Tiburcio: 8.9 cm/sec Med Peak E' Tiburcio: 7.2 cm/sec MV A max tiburcio: 122.2 cm/sec E/E' lat: 12.1 E/E' med: 15.0 MV E/A: 0.88 __ MV V2 max: 127.6 cm/sec Ao V2 max: 174.5 cm/sec MV max P.5 mmHg MV dec slope: 364.6 cm/sec2 Ao max P.2 mmHg MV V2 mean: 80.6 cm/sec Ao V2 mean: 122.8 cm/sec MV mean P.9 mmHg Ao mean P.5 mmHg MV V2 VTI: 40.0 cm Ao V2 VTI: 29.4 cm __ LV V1 max: 128.4 cm/sec PA V2 max: 105.0 cm/sec PI end-d tiburcio: 136.0 cm/sec LV V1 max P.6 mmHg ____ TR max tiburcio: 309.0 cm/sec TR max P.2 mmHg ECHO/Echo Complete Interpretation Summary Mild concentric left ventricular hypertrophy. The left ventricular ejection fraction is 65 %. Stage 1 diastolic dysfunction. The left atrium is mildly enlarged. Mitral annuloplasty ring noted. Trivial mitral valve regurgitation. Right ventricular systolic pressure estimated to be 43 mmHg. __ Ordering Physician: Bart Cardona Referring Physician: Bart Cardona Performed By: Lina Ash, RDCS, RVT 10/15/24 1355 Date _ Ricki Soria MD CC: Dr. Bart Cardona MD ~ Date Dictated: 10/15/24 1250 Date Transcribed: 10/15/24 1355 Trans Router: Signed [facility] Work Phone: [phone] PSA,Total - Annual Screenon 09-18-2024 PSA,TOT SCREEN 0.53 ng/mL Normal 0.00-4.00 [facility] Comment on above: Result Comment: This test was performed using the TPSA assay method for the [employer] chemistry system. Values obtained with different assay methods cannot be used interchangably. When changing PSA assays in the course of monitoring a patient, additional sequential testing should be carried out to confirm baseline values. Performed By: #### L 501.9910 ####[facility] [address] [facility]. [place], [place], [id number] Screening prostate specific antigen (PSA) measurementOrdered By: Bart Cardona on 09-18-2024 Prostate Specific Antigen Screen 0.53 ng/mL 0.00-4.00 [facility] Comment on above: This test was perfor med using the TPSA assay method for the[employer] chemistry system. Values obtained with differentassay methods cannot be used interchangably.When changing PSA assays in the course of monitoring apatient, additional sequential testing should be carriedout to confirm baseline values. Thyroidon 04-10-2024 Thyroid [facility] Imaging Services [address] [place] [address] Thyroid MR#: [id number] Acct: [id number] Name: RAHUL GHOSH Rep #: [id number] : 1960 M 63 From: Renan White MD PCP: Dr. Bart Cardona MD Status: REG CLI Study: Thyroid Date of Exam: 04/10/24 Exam# [id number] Ordering Dr: Bart Cardona MD -[id number] STUDY: THYROID ULTRASOUND REASON FOR EXAM: Male, 63 years old. nodule TECHNIQUE: Ultrasound evaluation of the thyroid was performed with real-time and static st-scale imaging. COMPARISON: 10/20/2021 FINDINGS: RIGHT LOBE: The right lobe of the thyroid gland measures 5.8 x 2.0 x 1.5 cm. There is a homogeneous echotexture. There are no demonstrated solid, cystic or complex lesions. LEFT LOBE: The left lobe of the thyroid gland measures 5.6 x 2.0 x 2.1 cm. There is a homogeneous echotexture. No change in a 4 mm adenoma in the anterior left lobe. ISTHMUS: The isthmus measures 3 mm thick. . The regional lymph nodes are normal. US/Thyroid IMPRESSION: No change in tiny adenoma left lobe. Electronically Signed: Renan White MD at 13:26 EDT , CC: Dr. Bart Cardona MD Trans Router: Signed Normal [facility] CBC W/Diff, Automatedon 03-15 Absolute Lymph 2.23 X10 3/uL Normal 0.83-4.51 [facility] Comment on above: Order Comment: Order Date: 04/02/24 Order Info: [id number] - CBCD Performed By: #### L 500.4050, L100.0100, L500.4100, L501.5200, L501.9985 #### [facility] [place], [address] Absolute Neut 5.5 X10 3/uL Normal 2.0-7.7 [facility] Comment on above: Order Comment: Order Date: 04/02/24 Order Info: [id number] - CBCD Performed By: #### L 500.4050, L100.0100, L500.4100, L501.5200, L501.9985 #### [facility] [address] [place], [address] Basophils/100 WBC (Bld) 0.2 % Normal 0-1 [facility] Comment on above: Order Comment: Order Date: 04/02/24 Order Info: [id number]- - CBCD Performed By: #### L 500.4050, L100.0100, L500.4100, L501.5200, L501.9985 #### [facility] [address] [place], [address] Eosinophils/100 WBC (Bld) 1.8 % Normal 0-5 [facility] Comment on above: Order Comment: Order Date: 04/02/24 Order Info: [id number]- - CBCD Performed By: #### L 500.4050, L100.0100, L500.4100, L501.5200, L501.9985 #### [facility] [address] [place], [address] Erythrocyte distribution width (RBC) [Ratio] 12.3 % Normal 11.6-14.6 [facility] Comment on above: Order Comment: Order Date: 04/02/24 Order Info: 0184- - CBCD Performed By: #### L 500.4050, L100.0100, L500.4100, L501.5200, L501.9985 #### [facility] [address] [place], [address] Hematocrit (Bld) [Volume fraction] 51.0 % Normal 40-54 [facility] Comment on above: Order Comment: Order Date: 04/02/24 Order Info: 0184-1 - CBCD Performed By: #### L 500.4050, L100.0100, L500.4100, L501.5200, L501.9985 #### [facility] [address] [place], [address] Hemoglobin (Bld) [Mass/Vol] 17.4 g/dL High 13.0-16.5 [facility] Comment on above: Order Comment: Order Date: 04/02/24 Order Info: [id number] - CBCD Performed By: #### L 500.4050, L100.0100, L500.4100, L501.5200, L501.9985 #### [facility] [address] [place], [address] IG% 0.500 Normal 0.0-0.9 [facility] Comment on above: Order Comment: Order Date: 04/02/24 Order Info: [id number] - CBCD Result Comment: IG% - Immature Granulocytes (promyelocytes, myelocytes and metamyelocytes) > 1% indicates that a LEFT SHIFT is Present. Performed By: #### L 500.4050, L100.0100, L500.4100, L501.5200, L501.9985 #### [facility] [address] [place], [address] Lymphocytes/100 WBC (Bld) 25.1 % Normal 19-41 [facility] Comment on above: Order Comment: Order Date: 04/02/24 Order Info: [id number] - CBCD Performed By: #### L 500.4050, L100.0100, L500.4100, L501.5200, L501.9985 #### [facility] [address] [place], [address] MCH (RBC) [Entitic mass] 29.6 pg Normal 27.0-32.0 [facility] Comment on above: Order Comment: Order Date: 04/02/24 Order Info: 018- - CBCD Performed By: #### L 500.4050, L100.0100, L500.4100, L501.5200, L501.9985 #### [facility] [address] [place], [address] MCHC (RBC) [Mass/Vol] 34.1 g/dL Normal 32-36 [facility] Comment on above: Order Comment: Order Date: 04/02/24 Order Info: [id number] - CBCD Performed By: #### L 500.4050, L100.0100, L500.4100, L501.5200, L501.9985 #### [facility] [address] [place], [address] MCV (RBC) [Entitic vol] 86.9 fL Normal 80-94 [facility] Comment on above: Order Comment: Order Date: 04/02/24 Order Info: 018- - CBCD Performed By: #### L 500.4050, L100.0100, L500.4100, L501.5200, L501.9985 #### [facility] [address] [place], [address] Monocytes/100 WBC (Bld) 10.4 % High 0-10 [facility] Comment on above: Order Comment: Order Date: 04/02/24 Order Info: 018- - CBCD Performed By: #### L 500.4050, L100.0100, L500.4100, L501.5200, L501.9985 #### [facility] [address] [place], [address] Neutrophils/100 WBC (Bld) 62.0 % Normal 47-70 [facility] Comment on above: Order Comment: Order Date: 04/02/24 Order Info: 018-1 - CBCD Performed By: #### L 500.4050, L100.0100, L500.4100, L501.5200, L501.9985 #### [facility] [address] [place], [address] Nucleated RBC (Bld) [#/Vol] 0 10*3/uL Normal 0-5 [facility] Comment on above: Order Comment: Order Date: 04/02/24 Order Info: 018- - CBCD Performed By: #### L 500.4050, L100.0100, L500.4100, L501.5200, L501.9985 #### [facility] [address] [place], [address] Platelet mean volume (Bld) [Entitic vol] 10.1 fL Normal 6.2-12.0 [facility] Comment on above: Order Comment: Order Date: 04/02/24 Order Info: 018- - CBCD Performed By: #### L 500.4050, L100.0100, L500.4100, L501.5200, L501.9985 #### [facility] [address] [place], [address] Platelets (Bld) [#/Vol] 241 10*3/uL Normal 150-450 [facility] Comment on above: Order Comment: Order Date: 04/02/24 Order Info: 018- - CBCD Performed By: #### L 500.4050, L100.0100, L500.4100, L501.5200, L501.9985 #### [facility] [address] [place], [address] RBC (Bld) [#/Vol] 5.87 10*6/uL Normal 4.6-6.2 [facility] Comment on above: Order Comment: Order Date: 04/02/24 Order Info: 018- - CBCD Performed By: #### L 500.4050, L100.0100, L500.4100, L501.5200, L501.9985 #### [facility] [address] [place], [address] RDW SD 38.9 fl Normal 35.1-43.9 [facility] Comment on above: Order Comment: Order Date: 04/02/24 Order Info: 0184-1 - CBCD Performed By: #### L 500.4050, L100.0100, L500.4100, L501.5200, L501.9985 #### [facility] [address] [place], [address] WBC (Bld) [#/Vol] 8.9 10*3/uL Normal 4.4-11.0 [facility] Comment on above: Order Comment: Order Date: 04/02/24 Order Info: [id number] - CBCD Performed By: #### L 500.4050, L100.0100, L500.4100, L501.5200, L501.9985 #### [facility] [address] [place], [address] Comprehensive Metabolic Prof [facility] 04-02-2024 Albumin [Mass/Vol] 3.7 g/dL Normal 3.2-5.0 [facility] Comment on above: Order Comment: Order Date: 04/02/24 Order Info: [id number] - CMP Order Info: [id number] - LIPID Order Info: [id number] - MG Performed By: #### L 500.4050, L100.0100, L500.4100, L501.5200, L501.9985 #### [facility] [address] [place], [address] Albumin/Globulin [Mass ratio] 1.1 {ratio} Normal 0.9-2.4 [facility] Comment on above: Order Comment: Order Date: 04/02/24 Order Info: [id number] - CMP Order Info: [id number] - LIPID Order Info: [id number] - MG Performed By: #### L 500.4050, L100.0100, L500.4100, L501.5200, L501.9985 #### [facility] [address] [place], [place], [address] ALK P 83 U/L Normal 45-117 [facility] Comment on above: Order Comment: Order Date: 04/02/24 Order Info: [id number] - CMP Order Info: [id number] - LIPID Order Info: [id number] - MG Performed By: #### L 500.4050, L100.0100, L500.4100, L501.5200, L501.9985 #### [facility] [address] [place], [place], [address] ALT [Catalytic activity/Vol] 20 U/L Normal 16-61 [facility] Comment on above: Order Comment: Order Date: 04/02/24 Order Info: [id number]- - CMP Order Info: [id number] - LIPID Order Info: [id number] - MG Performed By: #### L 500.4050, L100.0100, L500.4100, L501.5200, L501.9985 #### [facility] [address] [place], [place], [id number] AST [Catalytic activity/Vol] 18 U/L Normal 15-37 [facility] Comment on above: Order Comment: Order Date: 04/02/24 Order Info: [id number]- - CMP Order Info: [id number] - LIPID Order Info: [id number] - MG Performed By: #### L 500.4050, L100.0100, L500.4100, L501.5200, L501.9985 #### [facility] [address] [place], [place], [id number] Bilirubin [Mass/Vol] 0.50 mg/dL Normal 0.20-1.00 [facility] Comment on above: Order Comment: Order Date: 04/02/24 Order Info: [id number] - CMP Order Info: [id number] - LIPID Order Info: [id number] - MG Result Comment: For patients on eltrombopag therapy, use of Dimension Proctor TBIL is not recommended. Performed By: #### L 500.4050, L100.0100, L500.4100, L501.5200, L501.9985 #### [facility] [address] [place], [address] BUN/CRE 17.1 RATIO Normal 10-20 [facility] Comment on above: Order Comment: Order Date: 04/02/24 Order Info: [id number] - CMP Order Info: [id number] - LIPID Order Info: [id number] - MG Performed By: #### L 500.4050, L100.0100, L500.4100, L501.5200, L501.9985 #### [facility] [address] [place], [address] CA,Total 9.5 mg/dL Normal 8.5-10.1 [facility] Comment on above: Order Comment: Order Date: 04/02/24 Order Info: 785- - CMP Order Info: [id number] - LIPID Order Info: [id number] - MG Performed By: #### L 500.4050, L100.0100, L500.4100, L501.5200, L501.9985 #### [facility] [address] [place], [address] Chloride [Moles/Vol] 110 mmol/L High 98-107 [facility] Comment on above: Order Comment: Order Date: 04/02/24 Order Info: [id number] - CMP Order Info: [id number] - LIPID Order Info: [id number] - MG Performed By: #### L 500.4050, L100.0100, L500.4100, L501.5200, L501.9985 #### [facility] [address] [place], [address] CO2 [Moles/Vol] 24.0 mmol/L Normal 21.0-32.0 [facility] Comment on above: Order Comment: Order Date: 04/02/24 Order Info: [id number] - CMP Order Info: [id number] - LIPID Order Info: [id number] - MG Performed By: #### L 500.4050, L100.0100, L500.4100, L501.5200, L501.9985 #### [facility] [address] [place], [address] Creatinine [Mass/Vol] 1.05 mg/dL Normal 0.70-1.30 [facility] Comment on above: Order Comment: Order Date: 04/02/24 Order Info: [id number] - CMP Order Info: [id number] - LIPID Order Info: [id number] - MG Result Comment: The validity of the calculated GFR GFRAA in patients over 70 years has not been determined. Clinical correlation is essential. Performed By: #### L 500.4050, L100.0100, L500.4100, L501.5200, L501.9985 #### [facility] [address] [place], [place], [id number] EST GFR - AA 91 mL/min Normal >60 [facility] Comment on above: Order Comment: Order Date: 04/02/24 Order Info: [id number] - CMP Order Info: [id number] - LIPID Order Info: [id number] - MG Result Comment: Afri can Portuguese GFR Calc Performed By: #### L 500.4050, L100.0100, L500.4100, L501.5200, L501.9985 #### [facility] [address] [place], [place], [id number] GAP 5 Normal 5-15 [facility] Comment on above: Order Comment: Order Date: 04/02/24 Order Info: [id number] - CMP Order Info: [id number] - LIPID Order Info: [id number] - MG Performed By: #### L 500.4050, L100.0100, L500.4100, L501.5200, L501.9985 #### [facility] [address] [place], [address] GFR/1.73 sq M.predicted among non-blacks MDRD (S/P/Bld) [Vol rate/Area] 75 mL/min/{1.73_m2} Normal >60 [facility] Comment on above: Order Comment: Order Date: 04/02/24 Order Info: [id number] - CMP Order Info: [id number] - LIPID Order Info: [id number] - MG Result Comment: Non- GFR Calc Performed By: #### L 500.4050, L100.0100, L500.4100, L501.5200, L501.9985 #### [facility] [address] [place], [address] Globulin (S) [Mass/Vol] 3.3 g/dL Normal 2.2-4.2 [facility] Comment on above: Order Comment: Order Date: 04/02/24 Order Info: [id number]- - CMP Order Info: [id number] - LIPID Order Info: [id number] - MG Performed By: #### L 500.4050, L100.0100, L500.4100, L501.5200, L501.9985 #### [facility] [address] [place], [address] Glucose [Mass/Vol] 105 mg/dL Normal 74-106 [facility] Comment on above: Order Comment: Order Date: 04/02/24 Order Info: [id number]- - CMP Order Info: [id number] - LIPID Order Info: [id number] - MG Result Comment: Fast ing Glucose result from 100 to 125 mg/dL suggests IMPAIRED HOMEOSTASIS per A.D.A. criteria. Performed By: #### L 500.4050, L100.0100, L500.4100, L501.5200, L501.9985 #### [facility] [address] [place], [address] Potassium [Moles/Vol] 4.0 mmol/L Normal 3.5-5.1 [facility] Comment on above: Order Comment: Order Date: 04/02/24 Order Info: [id number] - CMP Order Info: [id number] - LIPID Order Info: [id number] - MG Performed By: #### L 500.4050, L100.0100, L500.4100, L501.5200, L501.9985 #### [facility] [address] [place], [address] Sodium [Moles/Vol] 139 mmol/L Normal 136-145 [facility] Comment on above: Order Comment: Order Date: 04/02/24 Order Info: [id number] - CMP Order Info: [id number] - LIPID Order Info: [id number] - MG Performed By: #### L 500.4050, L100.0100, L500.4100, L501.5200, L501.9985 #### [facility] [address] [place], [address] T PROT 7.0 g/dL Normal 6.4-8.2 [facility] Comment on above: Order Comment: Order Date: 04/02/24 Order Info: [id number] - CMP Order Info: [id number] - LIPID Order Info: [id number] - MG Performed By: #### L 500.4050, L100.0100, L500.4100, L501.5200, L501.9985 #### [facility] [address] [place], [address] Urea nitrogen [Mass/Vol] 18 mg/dL Normal 7-18 [facility] Comment on above: Order Comment: Order Date: 04/02/24 Order Info: [id number] - CMP Order Info: [id number] - LIPID Order Info: [id number] - MG Performed By: #### L 500.4050, L100.0100, L500.4100, L501.5200, L501.9985 #### [facility] [address] [place], [address] Hemoglobin A1con 04-02-2024 HbA1c (Bld) [Mass fraction] 5.6 % Normal 3.8-5.6 [facility] Comment on above: Order Comment: Order Date: 04/02/24 Order Info: [id number] - A1C Result Comment: Norm al < 5.7 % Prediabetic 5.7 - 6.4 % Diabetic >or= 6.5 % Please note range changes. Performed By: #### L 500.4050, L100.0100, L500.4100, L501.5200, L501.9985 #### [facility] [address] [place], [address] Lipid Profileon 04-02-2024 Cholesterol [Mass/Vol] 179 mg/dL Normal 200 [facility] Comment on above: Order Comment: Order Date: 04/02/24 Order Info: [id number] - CMP Order Info: [id number] - LIPID Order Info: [id number] - MG Result Comment: <200 mg/dL Desirable 200-240 mg/dL Borderline >240 mg/dL High Risk Performed By: #### L 500.4050, L100.0100, L500.4100, L501.5200, L501.9985 #### [facility] [address] [place], [address] Cholesterol in HDL [Mass/Vol] 46 mg/dL Normal [facility] Comment on above: Order Comment: Order Date: 04/02/24 Order Info: [id number]- - CMP Order Info: [id number] - LIPID Order Info: [id number] - MG Result Comment: The drugs N-Acetylcysteine and Metamizole may falsely depress this assay. Reference Range HDL <40 mg/dL Low HDL Cholesterol HDL >or= 60 mg/dL High HDL Cholesterol Performed By: #### L 500.4050, L100.0100, L500.4100, L501.5200, L501.9985 #### [facility] [address] [place], [address] Cholesterol in LDL [Mass/Vol] 105 mg/dL Normal 0-130 [facility] Comment on above: Order Comment: Order Date: 04/02/24 Order Info: [id number] - CMP Order Info: [id number] - LIPID Order Info: [id number] - MG Performed By: #### L 500.4050, L100.0100, L500.4100, L501.5200, L501.9985 #### [facility] [address] [place], [address] Cholesterol in VLDL [Mass/Vol] 28 mg/dL Normal 5-40 [facility] Comment on above: Order Comment: Order Date: 04/02/24 Order Info: [id number] - CMP Order Info: [id number] - LIPID Order Info: - MG Performed By: #### L 500.4050, L100.0100, L500.4100, L501.5200, L501.9985 #### [facility] [address] [place], [address] Triglyceride [Mass/Vol] 141 mg/dL Normal [facility] Comment on above: Order Comment: Order Date: 04/02/24 Order Info: [id number]- - CMP Order Info: [id number] - LIPID Order Info: - MG Result Comment: The drugs N-Acetylcysteine and Metamizole may falsely depress this assay. Serum Triglycerides Reference Interval Normal <150 mg/dL Borderline high 150 - 199 mg/dL High 200 - 499 mg/dL Very High > or = 500 mg/dL Performed By: #### L 500.4050, L100.0100, L500.4100, L501.5200, L501.9985 #### [facility] [address] [place], [address] Magnesiumon 04-02-2024 Magnesium [Mass/Vol] 2.3 mg/dL Normal 1.6-2.6 [facility] Comment on above: Order Comment: Order Date: 04/02/24 Order Info: [id number] - CMP Order Info: [id number] - LIPID Order Info: - MG Performed By: #### L 500.4050, L100.0100, L500.4100, L501.5200, L501.9985 #### [facility] [address] [place], [address] Urinalysis, Completeon 04-02 BACTERIA 0 SEEN Normal None Seen [facility] Comment on above: Order Comment: CLEAN CATCH Performed By: #### L 400.0001 #### [facility] [address] [place], [address] EPI,SQUAMOUS 0 SEEN Normal 0-5 [facility] Comment on above: Order Comment: CLEAN CATCH Performed By: #### L 400.0001 #### [facility] [address] [place], [address] Mucus Ql (Urine sed) 0 SEEN Normal [facility] Comment on above: Order Comment: CLEAN CATCH Performed By: #### L 400.0001 #### [facility] [address] [place], [address] RBC 0 SEEN Normal [address] [place] [address] Comment on above: Order Comment: CLEAN CATCH Performed By: #### L 400.0001 #### [facility] [address] [place], [address] WBC 0 SEEN Normal [address] [place] [address] Comment on above: Order Comment: CLEAN CATCH Performed By: #### L 400.0001 #### [facility] [address] [place], [address] Echo Completeon 03-04-2024 Echo Complete [facility] [address] [place] [address] Echo Complete 03/04/24 1455 MR#: [id number] Acct: [id number] Name: RAHUL GHOSH Rep #: [id number] : 1960 63 From: Leonides Garcia MD Attending Dr: Dr. Leonides Garcia MD Status: JENNIFER LEE Ordering Dr: Leonides Garcia MD Date: 03/04/24 Location: CVS Sex: M C Admitted: Reason For Study: MV Repair Procedure This was a 2D Doppler, Color Flow transthoracic echocardiogram. Exam performed in department. Left Ventricle Normal LV size. Left ventricular systolic function is normal. The left ventricular ejection fraction is 60 %. No regional wall motion abnormalities noted. Right Ventricle Normal RV size. Normal systolic function. Atria Normal left atrium. Normal right atrium. Mitral Valve Status post mitral valve repair with annuloplasty ring. Tricuspid Valve Normal tricuspid valve. Mild tricuspid valve insufficiency. Pulmonary artery systolic pressure is 35 mmHg. Aortic Valve Trisinus/trileaflet aortic valve. Pulmonic Valve Normal pulmonic valve. Great Vessels Normal aortic root. The pulmonary artery is normal size. Normal inferior vena cava. Pericardium/Pleural No pericardial effusion. MMode/2D Measurements Calculations LVIDd: 5.0 cm IVSd: 1.3 cm Ao root diam: 3.7 cm LVIDs: 3.1 cm LVPWd: 0.92 cm LA dimension: 4.7 cm RVDd: 3.5 cm FS: 39.2 % LAV(MOD-bp): 71.9 ml LVAd ap4: 32.7 cm2 SV(MOD-sp4): 57.6 ml LAV(MOD-bp) Indexed: 35.2 ml/m2 LVLd ap4: 8.4 cm LAV(MOD-sp2): 71.2 ml EDV(MOD-sp4): 104.6 ml LAV(MOD-sp4): 74.0 ml EDV(sp4-el): 108.3 ml LVAs ap4: 19.0 cm2 LVLs ap4: 6.7 cm ESV(MOD-sp4): 47.0 ml ESV(sp4-el): 45.2 ml EF(MOD-sp4): 55.1 % EF(sp4-el): 58.2 % SV(sp4-el): 63.0 ml LA A4 area: 21.8 cm2 RA A4 area: 17.6 cm2 TAPSE: 2.3 cm Time Measurements MV dec time: 0.23 sec Doppler Measurements Calculations MV E max tiburcio: 131.3 cm/sec Lat Peak E' Tiburcio: 8.8 cm/sec Med Peak E' Tiburcio: 9.2 cm/sec MV A max tiburcio: 92.5 cm/sec E/E' lat: 15.0 E/E' med: 14.3 MV E/A: 1.4 MV V2 max: 141.9 cm/sec MV P1/2t max tiburcio: 142.3 cm/sec Ao V2 max: 137.8 cm/sec MV max P.1 mmHg MV P1/2t: 73.7 msec Ao max P.6 mmHg MV V2 mean: 63.3 cm/sec MV dec slope: 565.3 cm/sec2 Ao V2 mean: 90.5 cm/sec MV mean P.1 mmHg Ao mean P.8 mmHg MV V2 VTI: 43.1 cm MVA(P1/2t): 3.0 cm2 Ao V2 VTI: 28.9 cm AV (velocity ratio): 0.87 LV V1 max: 111.5 cm/sec PA V2 max: 106.5 cm/sec TR max tiburcio: 281.0 cm/sec LV V1 max P.0 mmHg PA max PG (full): 1.8 mmHg TR max P.6 mmHg LV V1 mean P.2 mmHg PA V2 mean: 70.7 cm/sec LV V1 mean: 84.6 cm/sec PA mean PG (full): 0.85 mmHg LV V1 VTI: 25.1 cm ECHO/Echo Complete Interpretation Summary Normal LV size. Left ventricular systolic function is normal. The left ventricular ejection fraction is 60 %. Status post mitral valve repair with annuloplasty ring. Pulmonary artery systolic pressure is 35 mmHg. __ Ordering Physician: Leonides Garcia Referring Physician: Leonides Garcia Performed By: Hammad Goff RCS 03/04/24 581 Date Leonides Garcia MD CC: Dr. Leonides Garcia MD; Dr. Bart Cardona MD Date Dictated: 03/04/24 1455 Date Transcribed: 03/04/241716 Trans Router: Signed Normal [facility] Cardiology Visit Reporton Cardiology Visit Report [facility] [address] [place], [place] [address] OFFICE VISIT Date of Service: 02/01/24 MR#: [id number] Acct: [id number] Name: RAHUL GHOSH Rep #: [id number] : 1960 Provider: Dr. Leonides Garcia MD Age/Sex: 63/M Location: [facility] [place] Status: Signed [facility] History of Present Illness Details: RAHUL GHOSH, is a 63 y/o gentleman with a history of mitral valve repair in August 2014.??? He had a quadrangular resection of the P2 segments and sliding plasty and insertion of a size 32 annuloplasty band.??? He denies chest, arm, jaw, or neck discomfort. He denies palpitations. He denies bilateral lower extremity edema. He denies claudication. He denies shortness of breath with activity, shortness of breath at rest, orthopnea, or PND. He denies chronic cough. He denies significant, sudden weight gain. He denies lightheadedness, dizziness, near-syncope, or syncope. He denies blood in urine, blood in stool, or epistaxis. He denies fever with chills. He denies myalgia. He denies fatigue. His exercise level has remained stable. He tells me that he has been checking his blood pressures at home and they have been actually in the 1 30-1 40 range. He wonders if he can be off the hydrochlorothiazide . Intake Vital Signs 09/22/23 08:09 02/01/24 10:59 Height 5 ft 10 in 5 ft 10 in Weight: 188 lb BMI 26.9 BP 137/81 H Blood Pressure Location Lt brachial Position Sitting Respiration 14 Pulse 91 Pulse Source Monitor Intake Visit Reasons: 1 Y FU Manager Balance Required: No Accompanied by: Self Is patient in pain?: No Allergies No Known Allergies Allergy (Verified 02/01/24 11:00) [facility] Medical History History of echocardiogram Wears glasses Non-smoker Cardiology follow-up encounter Elevated blood pressure reading Nonrheumatic mitral (valve) prolapse Nonrheumatic mitral (valve) insufficiency Syncope and collapse Surgical History Hx of colonoscopy History of left heart catheterization (04/30/14) Hx of inguinal hernia repair History of tonsillectomy and adenoidectomy H/O mitral valve repair (08/28/14) Family History Father Cancer lung cancer Mother Diabetes Social History household members: spouse current occupational status: 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, [employer] Smoking Status: Never smoker alcohol intake: never substance use type: does not use ROS Const Const: Negative for fatigue, weakness, headache(s), daytime sleepiness or difficulty sleeping ENT ENT: Negative for headache(s), dizziness or Nosebleed/epistaxis Cardio Chest Pain: No Palpitations: No Edema: None Resp Respiratory: Negative for SOB with activity, SOB at rest, SOB orthopnea SOB lying down or Cough GI GI: Negative nausea, vomiting or heartburn Neuro Neuro: Negative for dizziness, lightheadedness, near syncope, headache(s) or weakness Endo Endo: Negative for fatigue Cardiology Exam Const Appearance: cooperative, healthy appearing, comfortable and no acute distress Nutritional Appearance: well nourished and overweight Orientation: alert, awake and oriented x3 Head Head: normal to inspection Ears: hearing grossly normal bilaterally Nose: external nose normal Face and Sinus: face symmetric Mouth: moist mucous membranes Eyes General: appearance normal, both eyes and all related structures Eyelids: eyelids normal EOM: EOM intact bilaterally Neck Neck: normal visual inspection and no JVD Carotids: normal carotid upstroke Chest Chest inspection: normal inspection of the chest, symmetric chest movement and normal respiratory effort; Negative cough Auscultation: Bilateral: Clear to Auscultation Cardio Rate: regular rate Rhythm: regular rhythm Heart sounds: S1 normal and S2 normal; Negative rub, gallop or murmur GI GI: normal to inspection Neuro General: patient alert, patient awake, patient oriented x3 and CN's II-XI intact bilaterally Skin Skin: no rashes or lesions noted Extremities Pulses: Normal: Right Posterior Tibial Pulse, Left Posterior Tibial Pulse, Right Radial Pulse and Left Radial Pulse Lower Extremity Edema: None: Bilateral Psych Psychological: normal affect Supplemental Info Supplemental Information ECHOCARDIOGRAM 01/13/2020 Interpretation Summary Status post mitral valve repair with annuloplasty ring. Normal LV size. Left ventricular systolic function is normal. The estimated ejection fraction is 60 %. Trivial mitral valve insufficiency. Pulmonary artery systolic pressure is 24 mmHg. ECHOCARDIO (more content not included)... Normal [facility] Absolute lymphocyte countOrd ered By: Bart Barclaymary on 09-14-2023 Lymphocytes Auto (Unsp spec) [#/Vol] 1.99 10*3/uL 0.83-4.51 [facility] Automated lymphocyte count a s percentage of total leukocytesOrdered By: Bart Cardona on 09-14-2023 Lymphocytes/100 WBC Auto (Unsp spec) 14.4 % 19-41 [facility] Basophil percentageOrdered B y: Bart Cardona on 09-14-2023 Basophil percentage 0 SEEN /hpf 0-5 [facility] Basophils/100 WBC (Bld) 0.1 % 0-1 [facility] Bilirubin [Mass/Vol] 0.50 mg/dL 0.20-1.00 [facility] Comment on above: For patients on eltr ombopag therapy, use of Dimension Proctor TBIL is not recommended. Chloride [Moles/Vol] 107 mmol/L 98-107 [facility] Cholesterol [Mass/Vol] 176 mg/dL <200 [facility] Comment on above: <200 mg/dL Desirable 200-240 mg/dL Borderline >240 mg/dL High Risk Eosinophils/100 WBC (Bld) 0.7 % 0-5 [facility] Glucose [Mass/Vol] 120 mg/dL 74-106 [facility] Comment on above: Fasting Glucose resu lt from 100 to 125 mg/dL suggests IMPAIRED HOMEOSTASIS per A.D.A. criteria. Hemoglobin (Bld) [Mass/Vol] 16.7 g/dL 13.0-16.5 [facility] Monocytes/100 WBC (Bld) 9.6 % 0-10 [facility] Neutrophils (Bld) [#/Vol] 10.3 10*3/uL 2.0-7.7 [facility] Neutrophils/100 WBC (Bld) 74.8 % 47-70 [facility] Potassium [Moles/Vol] 4.0 mmol/L 3.5-5.1 [facility] Protein [Mass/Vol] 7.1 g/dL 6.4-8.2 [facility] Sodium [Moles/Vol] 138 mmol/L 136-145 [facility] Triglyceride [Mass/Vol] 160 mg/dL <199 [facility] Comment on above: The drugs N-Acetylcy steine and Metamizole may falsely depress this assay.Serum Triglycerides Reference Interval Normal <150 mg/dL Borderline high 150 - 199 mg/dL High 200 - 499 mg/dL Very High > or = 500 mg/dL WBC (Bld) [#/Vol] 13.8 10*3/uL 4.4-11.0 [facility] Bilirubin Test strip Ql (U)O rdered By: Bart Cardona on 09-14-2023 Bilirubin Ql (U) Negative Negative [facility] Determination of erythrocyte mean corpuscular volume (MCV)Ordered By: Bart Cardona on 09-14-2023 MCV (RBC) [Entitic vol] 88.8 fL 80-94 [facility] Erythrocyte distribution wid th ratioOrdered By: Bart Cardona on 09-14-2023 Erythrocyte distribution width (RBC) [Ratio] 12.7 % 11.6-14.6 [facility] Erythrocyte distribution wid th standard deviationOrdered By: Bart Cardona on 09-14-2023 Erythrocyte distribution width (RBC) [Entitic vol] 41.3 fL 35.1-43.9 [facility] Hematocrit Auto (Bld) [Volum e fraction]Ordered By: Bart Cardona on 09-14-2023 Hematocrit (Bld) [Volume fraction] 50.5 % 40-54 [facility] Immature granulocytes/100 WB C Auto (Bld)Ordered By: Bart Cardona on 09-14-2023 Immature granulocytes/100 WBC (Bld) 0.400 % 0.0-0.9 [facility] Comment on above: IG% - Immature Granu locytes (promyelocytes, myelocytes and metamyelocytes) > 1% indicates that a LEFT SHIFT is Present. Ketones Test strip Ql (U)Ord ered By: Bart Cardona on 09-14-2023 Ketones Ql (U) 5 mg/dl Negative [facility] - Chemistry and C hemistry - challengeOrdered By: Bart Cardona on 09-14-2023 Albumin/Globulin [Mass ratio] 1.0 {ratio} 0.9-2.4 [facility] ALP [Catalytic activity/Vol] 77 U/L 45-117 [facility] ALT [Catalytic activity/Vol] 23 U/L 16-61 [facility] Cholesterol in HDL (Body fld) [Mass/Vol] 46 mg/dL >40 [facility] Comment on above: The drugs N-Acetylcy steine and Metamizole may falsely depress this assay. Reference Range HDL <40 mg/dL Low HDL Cholesterol HDL >or= 60 mg/dL High HDL Cholesterol Cholesterol in LDL (Body fld) [Moles/Vol] 98 mg/dL 0-130 [facility] Cholesterol in VLDL Calc [Moles/Vol] 32 mg/dL 5-40 [facility] CO2 [Moles/Vol] 30.0 mmol/L 21.0-32.0 [facility] Globulin (S) [Mass/Vol] 3.5 g/dL 2.2-4.2 [facility] Magnesium [Mass/Vol] 2.4 mg/dL 1.6-2.6 [facility] Prostate specific Ag IA [Mass/Vol] 0.42 ng/mL 0.00-4.00 [facility] Comment on above: This test was perfor med using the TPSA assay method for the[employer] chemistry system. Values obtained with differentassay methods cannot be used interchangably.When changing PSA assays in the course of monitoring apatient, additional sequential testing should be carriedout to confirm baseline values. Urea nitrogen/Creatinine [Mass ratio] 17.0 mg/mg 10-20 [facility] - Hematology and Cell countsOrdered By: Bart Cardona on 09-14-2023 MCH (RBC) [Entitic mass] 29.3 pg 27.0-32.0 [facility] MCHC (RBC) [Mass/Vol] 33.1 g/dL 32-36 [facility] Nucleated RBC/100 WBC (Bld) [Ratio] 0 % 0-5 [facility] Platelets (Bld) [#/Vol] 231 10*3/uL 150-450 [facility] Mucus LM Ql (Urine sed)Order ed By: Bart Cardona on 09-14-2023 Mucus Ql (Urine sed) 0 SEEN /hpf [facility] Nitrite Test strip Ql (U)Ord ered By: Bart Cardona on 09-14-2023 Nitrite Ql (U) Negative Negative [facility] No Panel InformationOrdered By: Bart Cardona on 09-14-2023 Urine RBC 0 SEEN /hpf 0-5 [facility] Estimated GFR (MDRD) Amer 85 mL/min >60 [facility] Comment on above: GFR Calc Estimated GFR (MDRD) Non-Af Amer 70 mL/min >60 [facility] Comment on above: Non- GFR Calc Platelet mean volume Derek-Ec ker (Bld) [Entitic vol]Ordered By: Bart Cardona on 09-14-2023 Platelet mean volume (Bld) [Entitic vol] 10.5 fL 6.2-12.0 [facility] Protein Test strip Ql (U)Ord ered By: Bart Cardona on 09-14-2023 Protein Ql (U) 15 mg/dl Negative [facility] RBC Auto (Bld) [#/Vol]Ordere d By: Bart Cardona on 09-14-2023 RBC (Bld) [#/Vol] 5.69 10*6/uL 4.6-6.2 [facility] Serum or plasma calcium viridiana urement (mass/volume)Ordered By: Bart Cardona on 09-14-2023 Calcium [Mass/Vol] 9.4 mg/dL 8.5-10.1 [facility] Serum or plasma creatinine m easurement (mass/volume)Ordered By: Bart Cardona on 09-14-2023 Creatinine [Mass/Vol] 1.12 mg/dL 0.70-1.30 [facility] Comment on above: The validity of the calculated GFR & GFRAA in patients over 70 years has not been determined. Clinical correlation is essential. Serum or plasma urea nitroge n measurement (mass/volume)Ordered By: Bart Cardona on 09-14-2023 Urea nitrogen [Mass/Vol] 19 mg/dL 7-18 [facility] Squamous epithelial cells de tection in urine sediment by light microscopyOrdered By: Bart Cardona on 09-14-2023 Epithelial cells.squamous LM Ql (Urine sed) 0 SEEN /hpf 0-5 [facility] Thin prep Papanicolaou smear with manual screeningOrdered By: Bart Cardona on 09-14-2023 Thin prep Papanicolaou smear with manual screening 3.6 g/dL 3.2-5.0 [facility] Thin prep Papanicolaou smear with manual screening 14 U/L 15-37 [facility] Thin prep Papanicolaou smear with manual screening 1 5-15 [facility] Urine blood detectionOrdered By: Bart Cardona on 09-14-2023 RBC Ql (U) Negative Negative [facility] Urine clarityOrdered By: Arden Cardona on 09-14-2023 Clarity (U) Clear Clear [facility] Urine color determinationOrd ered By: Bart Cardona on 09-14-2023 Color (U) Yellow Yellow [facility] Urine glucose detectionOrder ed By: Bart Cardona on 09-14-2023 Glucose Ql (U) Normal mg/dl Normal [facility] Urine leukocyte esterase det ection by dipstickOrdered By: Bart Cardona on 09-14-2023 Leukocyte esterase Test strip Ql (U) Negative Negative [facility] Urine pHOrdered By: Bart batista on 09-14-2023 pH (U) 5.0 [pH] 5.0 - 8.0 [facility] Urine sediment bacteria coun t by microscopy (number/high power field)Ordered By: Bart Cardona on 09-14-2023 Bacteria LM.HPF (Urine sed) [#/Area] 0 /[HPF] None Seen [facility] Urine specific gravity measu rementOrdered By: Bart Cardona on 09-14-2023 Specific gravity (U) [Rel density] 1.030 1.002-1.030 [facility] Urine urobilinogen measureme ntOrdered By: Bart Cardona on 09-14-2023 Urobilinogen Ql (U) Normal mg/dl Normal [facility] [place] blood hemoglobin A1c/t otal hemoglobin ratio (mass fraction)Ordered By: Bart Cardona on 09-14-2023 HbA1c (Bld) [Mass fraction] 5.7 % 3.8-5.6 [facility] Comment on above: Normal < 5.7 % Predi abetic 5.7 - 6.4 % Diabetic >or= 6.5 % Please note range changes. Office Visiton 12-22-2016 Documentation of current medications (procedure) Done Invalid Interpretation Code [facility] Phone: [phone] Fall risk assessment No Invalid Interpretation Code [facility] Phone: [phone] Office Visiton 12-24-2015 Tobacco use CPHS Never smoker Invalid Interpretation Code [facility] Phone: [phone] Replaced Document: [employer] E CG Observationson 09-25-2014 electrocardiogram interpretation Sinus Rhythm -Anterolateral ST-elevation -repolarization variant. PROBABLY NORMAL Invalid Interpretation Code [facility] Work Phone: [phone] GE use only - for LinkLogic import when terms are not otherwise specified 418 ms Invalid Interpretation Code [facility] Phone: [phone] P wave axis, electrocardiogram 58 deg Invalid Interpretation Code [facility] Phone: [phone] MT interval, electrocardiogram 148 ms Invalid Interpretation Code [facility] Phone: [phone] Pulse (Heart Rate) 100 /min Invalid Interpretation Code [facility] Phone: [phone] QRS axis, electrocardiogram -54 deg Invalid Interpretation Code [facility] Phone: [phone] QRS duration, electrocardiogram 88 ms Invalid Interpretation Code [facility] Phone: [phone] QT interval, electrocardiogram new path ms Invalid Interpretation Code [facility] Phone: [phone] T wave axis, electrocardiogram 27 deg Invalid Interpretation Code [facility] Phone: [phone] 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 Anion gap 7 mmol/L Invalid Interpretation Code [facility] Phone: [phone] BUN/Creatinine Ratio 17 mg/mg Invalid Interpretation Code [facility] Phone: [phone] Calcium 9.2 mg/dL Invalid Interpretation Code [facility] Phone: [phone] Chloride 102 mmol/L Invalid Interpretation Code [facility] Phone: [phone] CO2 28 mmol/L Invalid Interpretation Code [facility] Phone: [phone] Creatinine 0.942 mg/dL Invalid Interpretation Code [facility] Work Phone: [phone] Erythrocytes (RBC) 5.27 10*6/uL Invalid Interpretation Code [email or web address] Work Phone: [phone] Glucose 88 mg/dL Invalid Interpretation Code [facility] Work Phone: [phone] Hematocrit (HCT) 47.1 % Invalid Interpretation Code [email or web address] Work Phone: [phone] Hemoglobin (HGB) 15.9 g/dL Invalid Interpretation Code [email or web address] Work Phone: [phone] MCHC 33.8 g/dL Invalid Interpretation Code [email or web address] Work Phone: [phone] MCV 89.4 fL Invalid Interpretation Code [email or web address] Work Phone: [phone] Platelets 342 10*3/mm3 Invalid Interpretation Code [email or web address] Work Phone: [phone] PMV by Nelida 9.2 fL Low [facility] Work Phone: [phone] Potassium 4.4 mmol/L Invalid Interpretation Code [email or web address] Work Phone: [phone] RDW-CA 13.2 % Invalid Interpretation Code [email or web address] Work Phone: [phone] Sodium 138 mmol/L Invalid Interpretation Code [email or web address] Work Phone: [phone] Urea nitrogen 16 mg/dL Invalid Interpretation Code [email or web address] Work Phone: [phone] WBC (Leukocytes) 12.1 10*3/uL [email or web address] Work Phone: [phone] Office Visiton 08-21-2014 cardiac risk group B Invalid Interpretation Code [email or web address] Work Phone: [phone] General cardiovascular disease 10Y risk [#] Jdae 4 % Invalid Interpretation Code [email or web address] Work Phone: [phone] Lab Report: BMPon 04-25-2014 eGFR (non-black) 90 mL/min/{1.73_m2} Normal >60 [email or web address] Work Phone: [phone] eGFR (non-black) 74 mL/min/{1.73_m2} Normal >60 [email or web address] Work Phone: [phone] Lab Report: CBCon 04-25-2014 MCH 31.0 pg Normal 27.0-32.0 [facility] Work Phone: [phone] Lab Report: PTon 04-25-2014 INR in blood by coagulation 1.1 {INR} Normal [facility] Work Phone: [phone] prothrombin time, actual/normal, ratio 14.0 SECONDS Normal 11.7-14.9 [facility] Work Phone: [phone] External Other: Preferred Me thod of Contacton 04-16-2014 Patient's prefered method of contact secmsg Invalid Interpretation Code [facility] Work Phone: [phone] Clinical 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 Cholesterol 149 mg/dL Invalid Interpretation Code [facility] Work Phone: [phone] HDL Cholesterol 42 mg/dL Invalid Interpretation Code [facility] Work Phone: [phone] LDL Cholesterol 98 mg/dL Invalid Interpretation Code [facility] Work Phone: [phone] Triglyceride 44 mg/dL Invalid Interpretation Code [facility] Work Phone: [phone] very low density lipoproteins 9 mg/dL Invalid Interpretation Code [facility] Work Phone: [phone] Vital Signs Date Time Vital Sign Value Performing Clinician Sherrell olmos 09-22-2023 09:50-0500 Diastolic blood pressure 81 mm[Hg] Dr. Bart Cardona Work Phone: [facility] 09-22-2023 09:50-0500 Heart rate 70 /min Dr. Bart Cardona Work Phone: [facility] 09-22-2023 09:50-0500 Respiratory rate 16 /min Dr. Bart Cardona Work Phone: [facility] 09-22-2023 09:50-0500 SaO2% (BldA) [Mass fraction] 95 % Dr. Bart Cardona Work Phone: [facility] 09-22-2023 09:50-0500 Systolic blood pressure 128 mm[Hg] Dr. Bart Cardona Work Phone: [facility] 09-22-2023 09:30-0500 Body temperature 98.8 [degF] Dr. Bart Cardona Work Phone: [facility] 09-22-2023 08:09-0500 Body height 177.[address] Bart Cardona Work Phone: [facility] 09-22-2023 08:09-0500 Body mass index (BMI) [Ratio] 26.5 kg/m2 Dr. Bart Cardona Work Phone: [facility] 09-22-2023 08:09-0500 Body weight [address] Bart Cardona Work Phone: [facility] 09-15-2023 14:19-0500 Body mass index (BMI) [Ratio] 27.3 kg/m2 Dr. Bart Cardona Work Phone: [facility] 09-15-2023 14:19-0500 Body weight 88.[address] Bart Cardona Work Phone: [facility] 12-22-2016 13:07-0400 BMI (Body Mass Index) 28.09 kg/m2 Caroline [facility] Work Phone: 12-22-2016 13:07-0400 BP Diastolic 64 mm[Hg] [facility] Work Phone: 12-22-2016 13:07-0400 BP Systolic 110 mm[Hg] Caroline [facility] Work Phone: 12-22-2016 13:07-0400 Height 177.8 cm Caroline [facility] Work Phone: 12-22-2016 13:07-0400 Pulse (Heart Rate) 68 /min Caroline [facility] Work Phone: 12-22-2016 13:07-0400 Respiratory Rate 20 /min Caroline Bentley [facility] Work Phone: 12-22-2016 13:07-0400 Weight 88.81 kg [facility] Work Phone: 12-24-2015 13:04-0400 BSA (Body Surface Area) 2.04 m2 Caroline Bentley [facility] Work Phone: 09-25-2014 09:48-0500 Pulse Oximetry 98 % Caroline Bentley [facility] Work Phone: Encounters Encounter Date Encounter Type Care Provider Facility Start: 10-15-2024 Non-patient / Non-visit Dr. Ricki gresham MD -[facility] Start: 10-15-2024 End: 10-15-2024 ambulatory Bart Cardona Facility:[facility] Start: 10-15-2024 End: 10-15-[address] Bart Cardona MD -[facility] Work Phone: Start: 10-15-2024 End: 10-15-2024 ambulatory Bart Cardona Facility:[facility] Start: 09-18-2024 End: 09-18-[address] [facility] Start: 09-18-2024 End: 09-18-2024 ambulatory Bart Vineet Cardona Facility:[facility] Start: 04-10-2024 End: 04-10-2024 [facility] Start: 04-02-2024 End: 04-02-2024 [facility] Start: 03-05-2024 ambulatory Rosy Allison NP Facili ty:[facility] Start: 03-04-2024 ambulatory [facility] Start: 03-04-2024 End: 03-04-[facility] Start: 02-01-2024 End: 02-01-2024 [facility] Start: 09-22-2023 Non-patient / Non-visit Dr. Yumi Cardona Work Phone: [facility] Start: 09-22-2023 End: 09-22-2023 Admission to same day surgery center Dr. Bart Cardona Work Phone: [facility] Work Phone: Start: 09-22-2023 End: 09-22-[address] Bart Cardona Work Phone: [facility] Work Phone: Start: 09-15-2023 Non-patient / Non-visit Dr. Yumi Cardona Work Phone: [facility] Work Phone: Start: 09-14-2023 End: 09-14-[address] Bart Cardona Work Phone: [facility], [facility] Procedures Date Procedure Procedure Detail Performing Clinician Start: 09-22-[address] Bart simmons Work Phone: Start: 12-24-2015 End: 01-01-2016 Carotid duplex Leonides Garcia MD Start: 12-24-2015 End: 12-24-2015 BUSINESS COMPUTERS TEACHER Leonides Garcia MD Start: 12-24-2015 End: 12-24-2015 Follow Up Appt 1 year Leonides Garcia MD Start: 12-25-2014 End: 12-25-2014 BUSINESS COMPUTERS TEACHER Leonides Garcia MD Start: 12-25-2014 End: 12-26-2014 Documentation of current medications Leonides Garcia MD Start: 09-25-2014 End: 09-25-2014 BUSINESS COMPUTERS TEACHER Leonides Garcia MD Start: 09-25-2014 End: 09-25-2014 Electrocardiogram, [...] Leonides Garcia MD Start: 04-16-2014 End: 04-16-2014 BUSINESS COMPUTERS TEACHER Leonides Garcia MD Start: 04-16-2014 End: 04-16-2014 Electrocardiogram, complete Leonides Schilling i, MD Start: 04-16-2014 End: 04-16-2014 Follow Up Appt 6 weeks Leonides Garcia MD Start: 04-16-2014 End: 04-16-2014 Stress Echocardiogram (treadmill) Leonides Garcia MD Plan of Treatment Date Care Activity Detail Author Start: 09-22-2023 Patient discharge [facility] Start: 12-21-2017 End: 12-21-2017 Appointment Appointment [facility] Work Phone: Start: 12-22-2016 End: 12-22-2016 BUSINESS COMPUTERS TEACHER BUSINESS COMPUTERS TEACHER [facility] Work Phone: Start: 12-22-2016 End: 12-22-2016 Follow Up Appt 1 year Follow Up Appt 1 year [facility] Work Phone: Start: 12-24-2015 End: 12-24-2015 Carotid duplex Carotid duplex [facility] Work Phone: Start: 12-24-2015 End: 12-24-2015 BUSINESS COMPUTERS TEACHER BUSINESS COMPUTERS TEACHER [facility] Work Phone: Start: 12-24-2015 End: 12-24-2015 Follow Up Appt 1 year Follow Up Appt 1 year [facility] Work Phone: Start: 12-25-2014 End: 12-25-2014 BUSINESS COMPUTERS TEACHER BUSINESS COMPUTERS TEACHER [facility] Work Phone: Start: 12-25-2014 End: 12-25-2014 Follow Up Appt 1 year Follow Up Appt 1 year [facility] Work Phone: Start: 09-25-2014 End: 09-25-2014 Chest x-ray X-Ray, Chest, PA & Lateral [facility] Work Phone: Start: 09-25-2014 End: 09-25-2014 BUSINESS COMPUTERS TEACHER BUSINESS COMPUTERS TEACHER [facility] Work Phone: Start: 09-25-2014 End: 09-25-2014 Echocardiography Echocardiogram (complete) [facility] Work Phone: Start: 09-25-2014 End: 09-25-2014 Electrocardiogram, complete EKG (In office) [facility] Work Phone: Start: 09-25-2014 End: 09-25-2014 Follow Up Appt 3 months Follow Up Appt 3 months [facility] Work Phone: Start: 09-18-2014 End: 09-18-2014 48 hour holter monitor 48 hour holter monitor [facility] Work Phone: Start: 08-22-2014 End: 08-22-2014 Thoracic Surgery Referral Thoracic Surgery Referral Lawrence Ahuja, [address] [facility] [address], [place], [address] [facility] Work Phone: Start: 08-21-2014 End: 08-21-2014 BUSINESS COMPUTERS TEACHER BUSINESS COMPUTERS TEACHER [facility] Work Phone: Start: 08-21-2014 End: 08-21-2014 Follow Up Appt 2 months Follow Up Appt 2 months [facility] Work Phone: Start: 05-16-2014 End: 05-16-2014 BUSINESS COMPUTERS TEACHER BUSINESS COMPUTERS TEACHER [facility] Work Phone: Start: 05-16-2014 End: 05-16-2014 Follow Up Appt 3 months Follow Up Appt 3 months [facility] Work Phone: Start: 04-25-2014 End: 04-25-2014 *BMP *BMP [facility] Work Phone: Start: 04-25-2014 End: 04-25-2014 CBC W Auto Differential panel - Blood *CBC without Diff [facility] Work Phone: Start: 04-25-2014 End: 05-03-2014 Chest x-ray X-Ray, Chest, PA & Lateral [facility] Work Phone: Start: 04-25-2014 End: 04-25-2014 Coagulation factor induced.INR assay in platelet poor plasma *PT/INR [facility] Work Phone: Start: 04-25-2014 End: 04-25-2014 Left Heart Cath Left Heart Cath [facility] Work Phone: Start: 04-16-2014 End: 04-16-2014 BUSINESS COMPUTERS TEACHER BUSINESS COMPUTERS TEACHER [facility] Work Phone: Start: 04-16-2014 End: 04-16-2014 Electrocardiogram, complete EKG (In office) [facility] Work Phone: Start: 04-16-2014 End: 04-16-2014 Follow Up Appt 6 weeks Follow Up Appt 6 weeks [facility] Work Phone: Start: 04-16-2014 End: 04-16-2014 Stress Echocardiogram (treadmill) Stress Echocardiogram (treadmill) [facility] Work Phone: Colonoscopy [facility] Patient referral [facility] Work Phone: Immunizations Immunization Date Immunization Notes Care Provider Fa cility 11-17-2020 Covid (Pfizer) Dr. Bart Paez [facility] Work Phone: [facility] Payers Date Payer Category Payer Medicare [id number] 2024 Unknown [id number] 2024 Self-pay [id number] 2014 Unknown [facility] [id number] Unknown [id number] 2.16.8 [id number] Unknown [id number] 2.16.8 [id number] Unknown [id number] 2.16.8 [id number] Unknown [id number] 2.16.8 [id number] Unknown [id number] 2.16.8 [id number] Unknown [id number] 2.16.8 [id number] Unknown [id number] 2.16.8 [id number] Unknown [id number] 2.16.8 [id number] Unknown [id number] 2.16.8 [id number] Unknown [facility] [id number] Social History Date Type Detail Facility Start: 09-18-2023 Tobacco smoking stat [facility] Unknown if ever smoked [facility] Start: 1960 Sex Assigned At Male [facility] Start: 09-18-2023 Tobacco smoking stat [facility] Never smoked tobacco (finding) [facility] Start: 10-25-2024 Sex Male (finding) [facility] Goals Date Patient Goal Desired Activity /State Mental Status Date Assessment Result Facility 09-22-2023 Cognitive function Voice/Name [facility] Work Phone: History and physical note 09-22-2023 Note Date & Type Note Facility 09-22-2023 History and physi tawanna note Note Date/Time September 22, 2023 8:37am [facility] Medical Records Department [address] [place] [address] History & Physical Exam 09/22/23 0835 MR#: [id number] Acct: [id number] Name: RAHUL GHOSH Rep #:[id number] : 1960 62 From: Robles Rubio MD PCP: Dr. Bart Cardona MD Status:[facility] Location: [place] [address] HPI - General General Date of Service: 09/22/23 Chief Complaint: Screening for intestinal cancer HPI Narrative RAHUL GHOSH, is a 62 M who presents via open access today for screening colonoscopy. He has had a very remote 1 when he was a teenager. Only [facility] history is August 2014 he had a mitral valve repair. He has done well since that time and has no limitations. He denies any bright red blood per rectum or melena. No abdominal pain no weight loss. [facility] Medical History (Updated 09/18/23 @ 14:02 by Karthikeyan Mendez) Cardiology follow-up encounter Elevated blood pressure reading History of echocardiogram Non-smoker Nonrheumatic mitral (valve) insufficiency Nonrheumatic mitral (valve) prolapse Syncope and collapse Wears glasses Home Medications NK 09/18/23 [History Last Taken Unknown] Allergy/AdvReac Type Severity Reaction Status Date / Time No Known Allergies Allergy Verified 09/22/23 08:08 Family History Father Cancer lung cancer Mother Diabetes Surgical History H/O mitral valve repair (08/28/14) History of left heart catheterization (04/30/14) History of tonsillectomy and adenoidectomy Hx of colonoscopy Hx of inguinal hernia repair Social History (Updated 09/15/23 @ 14:14 by Megha Serrano) household members: spouse current occupational status: 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, [employer] Smoking Status: Never smoker alcohol intake: never substance use type: does not use ROS Constitutional Constitutional: Reports systems reviewed and no addt'l complaints, except as documented Cardiovascular Cardiovascular: Denies chest pain Respiratory/Chest Respiratory/Chest: Denies shortness of breath at rest Gastrointestinal Gastrointestinal: Denies abdominal pain, change in bowel habits, hematochezia ormelena Vital Signs Vital Signs Vital Signs: 09/22/23 08:09 09/22/23 08:09 Temperature 99.1 F Temperature Source Temporal Pulse Rate 82 Respiratory Rate 16 Respiratory Pattern Normal Blood Pressure 148/89 H Blood Pressure Mean 108 Blood Pressure Source Monitor Blood Pressure Position Semi-Fowlers Blood Pressure Location Left Arm Pulse Ox 96 Oxygen Delivery Method Room Air Weight Weight: 185 lb 3.013 oz Body Mass Index (BMI) 26.5 Physical Exam Const alert, oriented x3 and no apparent distress General Appearance: cooperative and comfortable Eyes General Eye: normal appearance of both eyes Neck General: normal visual inspection Chest inspection of chest normal Resp Effort and Inspection: able to speak in complete sentences and symmetric chest movement Auscultation: clear to auscultation bilaterally Cardio regular rate and regular rhythm GI soft to palpation, non-tender and non-distended Extremity no calf tenderness Neuro oriented x3 Psych thought process normal Assessment & Plan Assessment/Plan (1) Encounter for screening for malignant neoplasm of colon: PLAN: The patient presents for screening colonoscopy today with possible biopsy or polypectomy as indicated. He presents via open access. He has had an opportunity to ask and have questions answered. We will proceed as noted. Robles Rubio M.D., F.A.C.S. 09/22/23 0837 <Electronically signed by Robles Rubio MD> Cosigner Signature (if applicable): CC: Dr. Bart Cardona MD; Dr. Robles Rubio MD~ Signed [facility] Work Phone: Procedure note 09-22-2023 Note Date & Type Note Facility 09-22-2023 Procedure note [facility] Procedure note 09-22-2023 Note Date & Type Note Facility 09-22-2023 Procedure note [facility] Evaluation note Note Date & Type Note Facility Evaluation note Diagnosis Onset Date Encounter for screening for malignant neoplasm of colon acute [facility] Work Phone: Evaluation note Note Date & Type Note Facility Evaluation note No assessment information availa ble [facility] Work Phone: Reason for referral (narrative) Note Date & Type Note Facility Reason for referral (narrative) No reason for referral information available [facility] Work Phone: Chief Complaint and Reason for Visit Chief Complaint Amb Documentation Reason for Visit Encounter for screen ing for malignant neoplasm of colon Chief Complaint Admit Date RBBB October 15, 2024 12:4 3pm Family History Relationship Condition Age at Onset Recorded Date/T tyson father Malignant neoplasm Unknown mother Diabetes mellitus Unknown Advance Directives Advance Directive Response Recorded Date/ Time Name of Medical Power of Document Control Assistant LLOYD Kaiser September 18, 2023 1:32pm Living Will Yes September 18 1:32pm Power of Document Control Assistant Yes September 18, 2023 1:32pm Summary Purpose Additional Source Comments Care Teams (unrecognized sec tion and content) Team Status: Active Member Role Status Dates Dr. Bart Platt MD Family Provider Active Dr. Bart Cardona MD Primary Care Provider Active Team Status: Active Member Role Status Dates Dr. Bart Cardona MD Primary Care Provider Active Megha Serrano Attending Provider Active Team Status: Active Member Role Status Dates Dr. Bart Cardona MD Primary Care Provider, Referr ing Provider Active Dr. Robles Rubio MD Attending Provider, Other Prov ider Active Team Status: Inactive Member Role Status Dates Dr. Bart Cardona MD Primary Care Provider, Attend ing Provider Active Team Status: Inactive Member Role Status Dates Dr. Bart Cardona MD Primary Care Provider, Referr ing Provider Active Dr. Robles Rubio MD Attending Provider Active Team Status: Active Member Role Status Dates Dr. Bart Cardona MD Primary Care Provider Active Team Status: Inactive Member Role Status Dates Dr. Bart Cardona MD Primary Care Provider Active Start: September 18, 2024 End: September 18, 2024 Dr. Bart Cardona MD Attending Provider Active Start: September 18, 2024 End: September 18, 2024 Dr. Bart Cardona MD Referring Provider Active Start: September 18, 2024 End: September 18, 2024 Team Status: Inactive Member Role Status Dates Dr. Bart Cardona MD Primary Care Provider Active Start: October 15, 2024 End: October 15, 2024 Dr. Bart Cardona MD Attending Provider Active Start: October 15, 2024 End: October 15, 2024 Dr. Bart Cardona MD Referring Provider Active Start: October 15, 2024 End: October 15, 2024 Team Status: Active Member Role Status Dates Dr. Bart Cardona MD Primary Care Provider Active Start: October 15, 2024 Dr. Ricki Soria MD Attending Provider Active Start: October 15, 2024 (unrecognized sect ion and content) No Status Records Found INFORMATION SOURCE (unrecogn ized section and content) DATE CREATED AUTHOR 10/28/2024 [facility] Goals (unrecognized section and content) Goals may be documented in a n alternate section FOR RECORDS PERTAINING TO PATIENTS WHO ARE [...] BE BASED ON THE PRIMARY CLINICAL RECORDS. [employer] provides no warranty or guarantee of the accuracy or completeness of information in this document.
[2025-04-02 11:15] LABS: Ferritin 404 ng/mL (37-417); Iron 111 ug/dL (65-175); Iron Binding Capacity,Total 245 ug/dL (250-450); Iron Binding Capacity,Unsat 134 ug/dL (228-428)
== END | disposition home or self-care (01) ==
LOC: MTLAB 15:11
PROVIDERS: PCP Family Medicine; Referring Provider Family Medicine; Visit Provider Family Medicine
DX: I10 Essential (primary) hypertension (principal); R73.02 Impaired glucose tolerance (oral); R71.8 Other abnormality of red blood cells
CPT/HCPCS: 36415; 80053; 80061; 81001; 82728; 83036; 83540; 83550; 83735; 85025